=== PATIENT | male | born 1965 | race Caucasian/White ===

== ENCOUNTER 2020-07-19 14:30 | Inpatient (IN) ==
[2020-07-19] MEDS ORDERED: 0.9 % SODIUM CHLORIDE 1,000 ML IV ONE (14:36)
[2020-07-19] MEDS ORDERED: predniSONE 20 MG TABLET PO ONE (14:36)
--- NOTE | 2020-07-19 15:13 | XRay Report ---
CLINICAL INFORMATION: dyspnea COMPARISON: 03/12/2005 FINDINGS: Heart size, mediastinum and pulmonary vessels are normal. Small vague infiltrate has developed in the right base. No effusion. IMPRESSION: Small vague right basilar infiltrate-likely pneumonia. Interpreted and Authenticated by: Charlie Leahy 07/19/20
--- NOTE | 2020-07-19 15:20 | Emergency Department Note ---
SOB HPI General Chief Complaint: Shortness of Breath/Dyspnea Stated Complaint: sob Time Seen by Provider: 07/19/20 14:36 Source: patient, RN notes reviewed, old records reviewed and other (Dr. Brandon called [facility] Mode of arrival: ambulatory Limitations: no limitations and physical limitation History of Present Illness HPI Narrative: Narrative: 54-year-old male with a known of vocal cord polyps and laryngeal mass on CT on 427 evaluated by ENT today. Patient was noted to have stridor and compromised airway that was 4 mm. Sent to the emergency department for evaluation and stabilization. The presumed plan is awake airway. MD Complaint: shortness of breath Onset (ago): day(s) (7) Context: other (Known vocal cord polyps and laryngeal mass) Severity: severe Improves with: oxygen and upright position Worsens with: lying flat, exertion, movement, coughing and inspiration Associated symptoms: Reports pain with inspiration, cough, wheezing, sputum production, palpitations, diaphoresis and other (Stridor); Denies chest pain, fever, orthopnea, lower extremity pain, polyuria, polydipsia, parasthesias, carpopedal spasm, hemoptysis, nausea/vomiting, syncope, abdominal pain and sense of impending doom Treatment prior to arrival: other (Direct [place]) Related Data Home oxygen amount: none Home Medications Medication Instructions Recorded Confirmed No Known Home Meds 07/19/20 07/19/20 Allergies Allergy/AdvReac Type Severity Reaction Status Date / Time NKA Allergy Unknown N/A Uncoded 07/13/20 10:10 Review of Systems ROS ROS Narrative: Narrative: Limitations: ROS unobtainable due to patients medical condition [facility] Narrative Patient History Narrative: Narrative: Medical/Surgical/Family History All Active Problems (Updated 07/19/20 @ 16:16 by Ladarius Mark MD) Laryngeal cancer (Acute) Community acquired pneumonia (Acute) Polyp of vocal cord (Acute) Social History Smoking Status: Smoker, status unknown Exam Narrative Narrative: Narrative: General Limitations: no limitations and physical limitation General appearance: Present alert, anxious, cachectic and in distress Head Head: Present atraumatic and normocephalic Eye Eye: Present normal appearance, PERRL and EOMI ENT ENT: Present mucous membranes dry, hoarse voice and dental caries Expanded ENT Mouth: Present normal external inspection and tongue normal; Absent trismus, lip swelling, tongue elevation and tounge swelling Teeth: Present dental caries Throat: Present normal inspection, muffled voice and other (Stridor); Absent tonsillar erythema, tonsillomegaly, tonsillar exudate, R peritonsillar mass and L peritonsillar mass Neck Neck: Present normal inspection, full ROM, tenderness and lymphadenopathy; Absent meningismus and thyromegaly Chest Chest: Present normal inspection; Absent tenderness Respiratory Respiratory: Present normal lung sounds bilaterally; Absent respiratory distress Cardiovascular Cardiovascular: Present regular rate and normal rhythm; Absent systolic murmur Adbominal Abdominal: Present soft; Absent distention, tenderness, guarding and rebound Extremities Extremities: Present normal inspection and full ROM; Absent tenderness, pedal edema and pretibial edema Back Back: Present normal inspection; Absent CVA tenderness (R) and CVA tenderness (L) Neurological Neurological: Present alert and oriented X3 Psychiatric Psychiatric: Present normal affect and normal mood Skin Skin: Present warm (WNL); Absent rash Course Vital Signs Vital signs: Vital Signs Temperature 97.5 F 07/19/20 14:30 Pulse Rate 97 H 07/19/20 14:30 Respiratory Rate 22 07/19/20 14:30 Blood Pressure 119/86 07/19/20 14:30 Pulse Oximetry (%) 97 07/19/20 14:30 Temperature 97.5 F 07/19/20 14:30 Pulse Rate 82 07/19/20 16:01 Respiratory Rate 14 07/19/20 16:01 Blood Pressure 109/81 07/19/20 16:01 Pulse Oximetry (%) 98 07/19/20 16:01 [facility] Narrative Medical decision making narrative: Narrative: Medical Records Medical records reviewed: Yes I reviewed the patient's medical records. Medical records narrative: 54-year-old male with laryngeal cancer and compromised airway referred from Dr. Brandon's office. Patient has been observed will be taken to the OR for surgical airway. Lab Data Result diagrams: 07/19/20 14:36 07/19/20 14:36 Labs: Lab Results 07/19/20 07/19/20 07/19/20 Range/Units 14:36 14:36 14:36 WBC 12.0 H (4.5-11.0) K/mcL RBC 4.47 L (4.50-5.90) M/mcL Hgb 13.1 L (13.5-16.5) g/dL Hct 40.4 L (41.0-55.0) % MCV 90.4 (80.0-100.0) fL MCH 29.3 (26.0-34.0) pg MCHC 32.4 (31.0-36.0) g/dL RDW 14.3 (11.5-14.5) % Plt Count 272 (140-440) K/mcL MPV 10.2 (7.4-10.4) fL Neut % (Auto) 55.6 (38.0-78.0) % Lymph % (Auto) 32.8 (15.0-49.0) % [place] % (Auto) 10.1 (1.0-12.0) % Eos % (Auto) 1.3 (0.0-7.0) % Baso % (Auto) 0.2 (0.0-2.0) % Lymph # (Auto) 3.92 (1.50-4.80) K/mcL [place] # (Auto) 1.21 H (0.10-0.90) K/mcL Eos # (Auto) 0.16 (0.00-0.70) K/mcL Baso # (Auto) 0.02 (0.00-0.20) K/mcL Absolute Neutrophils 6.64 (1.80-8.00) K/mcL PT 13.5 (11.9-14.5) sec INR 1.0 (0.9-1.1) VBG Lactic Acid (0.5-2.0) mmol/L Sodium 138 (133-145) mmol/L Potassium 3.6 (3.3-5.1) mmol/L Chloride 105 (96-108) mmol/L Carbon Dioxide 28 (22-30) mmol/L Anion Gap 5.0 L (8.0-16.0) BUN 19 (6-20) mg/dL Creatinine 0.7 (0.7-1.2) mg/dL GFR Calculation 108 Glucose 125 H (70-105) mg/dL Calcium 8.7 (8.6-10.4) mg/dL Total Bilirubin 0.3 (0.1-1.0) mg/dL AST 19 (<40) U/L ALT 15 (<40) U/L Alkaline Phosphatase 53 (39-117) U/L Total Protein 6.4 (5.9-8.4) gm/dL Albumin 3.7 (3.2-5.2) gm/dL Globulin 2.7 (2.2-3.7) gm/dL Albumin/Globulin Ratio 1.4 (1.0-2.3) 07/19/20 Range/Units 14:36 WBC (4.5-11.0) K/mcL RBC (4.50-5.90) M/mcL Hgb (13.5-16.5) g/dL Hct (41.0-55.0) % MCV (80.0-100.0) fL MCH (26.0-34.0) pg MCHC (31.0-36.0) g/dL RDW (11.5-14.5) % Plt Count (140-440) K/mcL MPV (7.4-10.4) fL Neut % (Auto) (38.0-78.0) % Lymph % (Auto) (15.0-49.0) % [place] % (Auto) (1.0-12.0) % Eos % (Auto) (0.0-7.0) % Baso % (Auto) (0.0-2.0) % Lymph # (Auto) (1.50-4.80) K/mcL [place] # (Auto) (0.10-0.90) K/mcL Eos # (Auto) (0.00-0.70) K/mcL Baso # (Auto) (0.00-0.20) K/mcL Absolute Neutrophils (1.80-8.00) K/mcL PT (11.9-14.5) sec INR (0.9-1.1) VBG Lactic Acid 1.2 (0.5-2.0) mmol/L Sodium (133-145) mmol/L Potassium (3.3-5.1) mmol/L Chloride (96-108) mmol/L Carbon Dioxide (22-30) mmol/L Anion Gap (8.0-16.0) BUN (6-20) mg/dL Creatinine (0.7-1.2) mg/dL GFR Calculation Glucose (70-105) mg/dL Calcium (8.6-10.4) mg/dL Total Bilirubin (0.1-1.0) mg/dL AST (<40) U/L ALT (<40) U/L Alkaline Phosphatase (39-117) U/L Total Protein (5.9-8.4) gm/dL Albumin (3.2-5.2) gm/dL Globulin (2.2-3.7) gm/dL Albumin/Globulin Ratio (1.0-2.3) ED POC Tests ED POC Tests: MARBELLA - SARS Antigen Negative Radiology Data Radiology results reviewed: Yes I reviewed the patient's radiology results. EKG Data EKG #1: EKG attestation: Yes I reviewed and interpreted this EKG. Rate: tachycardia (101) Rhythm: A.Fib [place]/QRS: RBBB Voltage: decreased voltage throughout Interpretation: nonspecific ST-T wave changes Pulse Oximetry Data Pulse Ox %: 99 Discharge Plan Patient/Caregiver Discharge Instructions Pt seen by MATERIAL PREPARATION WORKER/PA only: No Clinical Impression: Laryngeal cancer, Community acquired pneumonia Patient Disposition: Xfer As Inpt ([facility]) Follow up with: Jim Allison MD [Primary Care Provider] - Prescriptions: No Action No Known Home Meds RF: 0
[2020-07-19 15:26] LABS: Basophils # (Auto) 0.02 K/mcL (0.00-0.20); Basophils % (Auto) 0.2 % (0.0-2.0); Eosinophils # (Auto) 0.16 K/mcL (0.00-0.70); Eosinophils % (Auto) 1.3 % (0.0-7.0); Hematocrit 40.4 % (41.0-55.0); Hemoglobin 13.1 g/dL (13.5-16.5); Lymphocytes # (Auto) 3.92 K/mcL (1.50-4.80); Lymphocytes % (Auto) 32.8 % (15.0-49.0); Mean Cell Volume 90.4 fL (80.0-100.0); Mean Corpuscular HGB Conc 32.4 g/dL (31.0-36.0); Mean Platelet Volume 10.2 fL (7.4-10.4); Monocytes # (Auto) 1.21 K/mcL (0.10-0.90); Monocytes % (Auto) 10.1 % (1.0-12.0); Neutrophils % (Auto) 55.6 % (38.0-78.0); Platelet Count 272 K/mcL (140-440); RBC 4.47 M/mcL (4.50-5.90); Red Cell Distribution Width 14.3 % (11.5-14.5)
[2020-07-19 15:44] LABS: ALT/SGPT 15 U/L (<40); AST/SGOT 19 U/L (<40); Albumin 3.7 gm/dL (3.2-5.2); Albumin/Globulin Ratio 1.4 (1.0-2.3); Alkaline Phosphatase 53 U/L (39-117); Bilirubin,Total 0.3 mg/dL (0.1-1.0); Blood Urea Nitrogen 19 mg/dL (6-20); Calcium 8.7 mg/dL (8.6-10.4); Carbon Dioxide 28 mmol/L (22-30); Chloride 105 mmol/L (96-108); Globulin 2.7 gm/dL (2.2-3.7); Glomerular Filtration Rate 108; Glucose 125 mg/dL (70-105)
[2020-07-19 15:45] LABS: Prothrombin Time 13.5 sec (11.9-14.5)
[2020-07-19] MEDS ORDERED: cefTRIAXone 1 GM VIAL IV ONE (16:13)
[2020-07-19] MEDS ORDERED: AZITHROMYCIN 500 MG in DEXTROSE 5% IN WATER 250 ML IV ONE (16:13)
[2020-07-19] MEDS ORDERED: KETAMINE 50 MG/ML ML ONE (16:55)
[2020-07-19] MEDS ORDERED: PROPOFOL 200 MG/20 ML VIAL IV ONE (16:55)
[2020-07-19] MEDS ORDERED: IPRATROPIUM/ALBUTEROL 3 ML AMPUL.NEB NEB PRN (17:36)
[2020-07-19] MEDS ORDERED: LACTATED RINGERS 250 ML IV PRN (17:36)
[2020-07-19] MEDS ORDERED: diphenhydrAMINE 50 MG/ML VIAL IV PRN (17:36)
[2020-07-19] MEDS ORDERED: MEPERIDINE 25 MG/ML VIAL IV PRN (17:36)
[2020-07-19] MEDS ORDERED: ONDANSETRON 4 MG/2 ML VIAL IV PRN ×2 (17:36→19:03)
[2020-07-19] MEDS ORDERED: PROMETHAZINE 25 MG/ML VIAL IV PRN (17:36)
[2020-07-19] MEDS ORDERED: fentaNYL 100 MCG/2 ML VIAL IV PRN (17:36)
[2020-07-19] MEDS ORDERED: NALOXONE HCL 0.4 MG/ML VIAL IV PRN (17:36)
[2020-07-19] MEDS ORDERED: ACETAMINOPHEN 1,000 MG/100 ML BAG IV ONE (17:36)
[2020-07-19] MEDS ORDERED: LACTATED RINGERS 1,000 ML IV SCH (17:45)
[2020-07-19] MEDS ORDERED: LORazepam 2 MG/ML VIAL ONE (18:01)
[2020-07-19] MEDS ORDERED: LORazepam 2 MG/ML VIAL IV ONE (18:03)
--- NOTE | 2020-07-19 18:18 | XRay Report ---
CLINICAL INFORMATION: Post Surgical ; Trachea placement verification COMPARISON: Preoperative plain film 07/19/2020 FINDINGS: Mild cardiomegaly show slight increase. Mediastinum unremarkable. Tracheostomy tip is 5 cm above the yaneth. Scattered subcutaneous gas in the neck region-as expected. The lungs are clear. No effusions. IMPRESSION: Tracheostomy tip 5 cm above the yaneth. No acute disease Interpreted and Authenticated by: Charlie Leahy 07/19/20
[2020-07-19] MEDS ORDERED: LIDOCAINE W/EPI 1% 20 ML VIAL IJ ONE (18:34)
[2020-07-19] MEDS ORDERED: BISACODYL 10 MG SUPP.RECT PR PRN (19:03)
[2020-07-19] MEDS ORDERED: POTASSIUM CHLORIDE 40 MEQ in DEXTROSE 5% IN WATER 500 ML IV PRN (19:03)
[2020-07-19] MEDS ORDERED: MAGNESIUM SULFATE 2 GM/50 ML BAG IV PRN (19:03)
[2020-07-19] MEDS ORDERED: MELATONIN 3 MG TABLET PO PRN (19:03)
[2020-07-19] MEDS ORDERED: ONDANSETRON 4 MG ODT TABLET SL PRN (19:03)
[2020-07-19] MEDS ORDERED: ACETAMINOPHEN 325 MG TABLET PO PRN (19:03)
[2020-07-19] MEDS ORDERED: POLYETHYLENE GLYCOL 3350 17 GM PACKET PO PRN (19:03)
[2020-07-19] MEDS: 0.9 % SODIUM CHLORIDE 1,000 ML IV SCH (19:19)
[2020-07-19] MEDS: LEVOFLOXACIN 750 MG/150 ML BAG IV SCH (19:28)
[2020-07-19] MEDS: DOCUSATE SODIUM 100 MG CAPSULE PO SCH (19:30)
[2020-07-19] MEDS: SENNOSIDES/DOCUSATE SODIUM 1 TAB TABLET PO SCH (19:30)
[2020-07-19] MEDS: 0.9 % SODIUM CHLORIDE 10 ML SYRINGE IV SCH ×2 (19:30→21:53)
[2020-07-19] MEDS: HYDROmorphone 0.5 MG/0.5 ML SYRINGE IV PRN ×2 (19:40→23:23)
--- NOTE | 2020-07-19 21:42 | Internal Medicine Consult Note ---
HPI Data of Consult Primary Care Provider: Jim Allison Consult Narrative Patient Information: Note initiated : 07/19/20 at 9:39 pm Service Date, if different from initiated Date: [] Patient: Matthias Stoll 54 y/o M admitted on 07/19/20 for SOB . Chief Complaint: Post tracheostomy History of chief complaint- Mr. 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 He was evaluated in the clinic and was referred to the ER for airway management. Patient underwent tracheostomy by ENT and postoperatively hospital service was consulted for continued airway monitoring post tracheostomy. At the time of my evaluation patient is immediately postop. He is under anesthetic sedation but respond to commands and opens eyes. Patient has been incarcerated and being in [facility] but has been released during this hospitalization. Stable hemodynamics in the postoperative phase. Transition to ICU for close airway monitoring. No family members available for prior health history. Review of systems 10 point review system was performed and is negative except for 1 discussed above cc:: CC: Jatinder Brandon [facility] PFSH All Active Problems (Updated 07/19/20 @ 16:16 by Ladarius Mark MD) Laryngeal cancer (Acute) Community acquired pneumonia (Acute) Polyp of vocal cord (Acute) MEDS/ALLERGIES Home Medications and Allergies Home Medications Medication Instructions Recorded Confirmed Type No Known Home Meds 07/19/20 07/20/20 History Allergies Allergy/AdvReac Type Severity Reaction Status Date / Time No Known Drug Allergies Allergy Verified 07/19/20 22:54 EXAM Constitutional Vitals: Temp Pulse Resp BP Pulse Ox 98.2 F 63 12 112/76 100 07/19/20 19:01 07/19/20 21:01 07/19/20 21:01 07/19/20 21:01 07/19/20 21:01 Head normocephalic Oral cavity moist No ear nose discharge Neck tracheostomy collar/dressing noted Eye movement symmetrical Neck supple no lymphadenopathy S1-S2 regular Nonlabored breathing Nondistended nontender abdomen Lower extremity no cyanosis clubbing or joint swelling Skin no suspicious lesion Psych sedated postoperative phase Neuro could not be performed DATA Data Completed and Pending Labs: Labs from last 24 hours 07/19/20 07/19/20 07/19/20 14:36 14:36 14:36 WBC RBC Hgb Hct MCV MCH MCHC RDW Plt Count MPV Neut % (Auto) Lymph % (Auto) [place] % (Auto) Eos % (Auto) Baso % (Auto) Lymph # (Auto) [place] # (Auto) Eos # (Auto) Baso # (Auto) Absolute Neutrophils PT 13.5 INR 1.0 VBG Lactic Acid 1.2 Sodium 138 Potassium 3.6 Chloride 105 Carbon Dioxide 28 Anion Gap 5.0 L BUN 19 Creatinine 0.7 GFR Calculation 108 Glucose 125 H Calcium 8.7 Total Bilirubin 0.3 AST 19 ALT 15 Alkaline Phosphatase 53 Total Protein 6.4 Albumin 3.7 Globulin 2.7 Albumin/Globulin Ratio 1.4 07/19/20 14:36 WBC 12.0 H RBC 4.47 L Hgb 13.1 L Hct 40.4 L MCV 90.4 MCH 29.3 MCHC 32.4 RDW 14.3 Plt Count 272 MPV 10.2 Neut % (Auto) 55.6 Lymph % (Auto) 32.8 [place] % (Auto) 10.1 Eos % (Auto) 1.3 Baso % (Auto) 0.2 Lymph # (Auto) 3.92 [place] # (Auto) 1.21 H Eos # (Auto) 0.16 Baso # (Auto) 0.02 Absolute Neutrophils 6.64 PT INR VBG Lactic Acid Sodium Potassium Chloride Carbon Dioxide Anion Gap BUN Creatinine GFR Calculation Glucose Calcium Total Bilirubin AST ALT Alkaline Phosphatase Total Protein Albumin Globulin Albumin/Globulin Ratio A/P Narrative A/P Narrative: * 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 Postoperative care/suctioning/dressing changes and trach management per ENT * Right basilar pneumonia-initiate antibiotic coverage * Prophylaxis SCDs Plan * Continue postoperative care/tracheostomy care per ENT * Transfer to PCU for extended postop recovery * Antibiotic coverage for pneumonia * Pain management Time Spent With Patient Time: Total time spent is greater than 50% in coordination of care (as documented) at patient's floor/unit and/or counseling patient:
[2020-07-20] MEDS ORDERED: HYDROmorphone 0.5 MG/0.5 ML SYRINGE ONE ×2 (01:24→05:19)
[2020-07-20] MEDS: HYDROmorphone 0.5 MG/0.5 ML SYRINGE IV PRN (05:19)
[2020-07-20] MEDS: 0.9 % SODIUM CHLORIDE 10 ML SYRINGE IV SCH ×3 (05:19→21:01)
[2020-07-20] MEDS: DOCUSATE SODIUM 100 MG CAPSULE PO SCH ×2 (07:01→21:01)
[2020-07-20 07:11] LABS: Basophils # (Auto) 0.01 K/mcL (0.00-0.20); Basophils % (Auto) 0.1 % (0.0-2.0); Eosinophils # (Auto) 0.01 K/mcL (0.00-0.70); Eosinophils % (Auto) 0.1 % (0.0-7.0); Hematocrit 35.4 % (41.0-55.0); Hemoglobin 11.5 g/dL (13.5-16.5); Lymphocytes # (Auto) 1.98 K/mcL (1.50-4.80); Lymphocytes % (Auto) 17.2 % (15.0-49.0); Mean Cell Volume 91.7 fL (80.0-100.0); Mean Corpuscular HGB Conc 32.5 g/dL (31.0-36.0); Monocytes # (Auto) 0.87 K/mcL (0.10-0.90); Monocytes % (Auto) 7.5 % (1.0-12.0); Neutrophils % (Auto) 75.1 % (38.0-78.0); Platelet Count 241 K/mcL (140-440); RBC 3.86 M/mcL (4.50-5.90); Red Cell Distribution Width 14.5 % (11.5-14.5); WBC 11.5 K/mcL (4.5-11.0)
[2020-07-20 07:40] LABS: ALT/SGPT 18 U/L (<40); AST/SGOT 12 U/L (<40); Albumin/Globulin Ratio 1.2 (1.0-2.3); Alkaline Phosphatase 42 U/L (39-117); Bilirubin,Direct < 0.2 mg/dL (0-0.3); Bilirubin,Total 0.4 mg/dL (0.1-1.0); Blood Urea Nitrogen 15 mg/dL (6-20); Calcium 8.2 mg/dL (8.6-10.4); Carbon Dioxide 29 mmol/L (22-30); Chloride 105 mmol/L (96-108); Globulin 2.5 gm/dL (2.2-3.7); Glomerular Filtration Rate 115; Glucose 110 mg/dL (70-105); Lactate Dehydrogenase 182 U/L (135-225); Phosphorous 3.5 mg/dL (2.5-4.5); Triglycerides 53 mg/dL (<150)
--- NOTE | 2020-07-20 12:31 | Internal Med Progress Note ---
SUBJECTIVE Subjective Patient information: Note initiated : 07/20/20 at 12:28 pm Service Date, if different from initiated Date: [] Patient: Matthias Stoll 54 y/o M admitted on 07/19/20 for SOB . Chief Complaint: [] Interval history: Mr. 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 He was evaluated in the clinic and was referred to the ER for airway management. Patient underwent tracheostomy by ENT and postoperatively hospital service was consulted for continued airway monitoring post tracheostomy. At the time of my evaluation patient is immediately postop. He is under anesthetic sedation but respond to commands and opens eyes. Patient has been incarcerated and being in [facility] but has been released during this hospitalization. Stable hemodynamics in the postoperative phase. Transition to ICU for close airway monitoring. No family members available for prior health history. 07/20-patient doing better. Ongoing trach management per ENT. No overnight fevers, respite distress, concerning symptoms. Trach education ongoing. Case discussed with Dr. Seymour ENT. Recommend softer full liquid diet. RT to continue education for trach management/suctioning Constitutional Vitals: Vital Signs Temp Pulse Resp BP Pulse Ox 98.8 F 49 L 13 118/85 100 07/20/20 12:01 07/20/20 12:01 07/20/20 12:01 07/20/20 12:01 07/20/20 12:01 Period Temp Pulse Resp BP Sys/Chavis Pulse Ox Last 24 Hr 97.5 F-98.8 F 49-172 7-28 102-121/67-95 94-100 Intake and Output 07/19/20 07/20/20 07/20/20 21:59 05:59 13:59 Intake Total 3270 0 Output Total 550 450 Balance 3270 -550 -450 Weight 104.978 kg Alert oriented Nonlabored breathing No anxiety Trach in place Intake & Output: Intake & Output 07/19/20 07/20/20 07/20/20 21:59 05:59 13:59 Intake Total 3270 0 Output Total 550 450 Balance 3270 -550 -450 Weight 104.978 kg Intake: IV 2470 Sodium Chloride 0.9% 1,000 ml @ 1000 Wide Open IV .Q0M ONE Rx#: [id number] Zithromax 500 mg In Dextrose 5% 250 in Water 250 ml @ 250 mls/hr IV ONCE ONE Rx#:[id number] Lactated Ringers 1,000 ml @ 20 970 mls/hr IV .Q24H [facility] Rx#: [id number] Oral 0 IV - Manual Only 800 Output: Void Amount 550 450 Other: Urine Appearance Clear Cloudy Urine Color Dark Silvia Dark Yellow Urine Odor Strong OBJ DATA Labs CBC & Chem 7: 07/20/20 05:15 07/20/20 05:15 Labs: Abnormal Lab Results 07/20/20 07/20/20 07/19/20 05:15 05:15 14:36 WBC 11.5 H RBC 3.86 L Hgb 11.5 L Hct 35.4 L [place] # (Auto) Absolute Neutrophils 8.66 H Anion Gap 5.0 L 5.0 L Creatinine 0.6 L Glucose 110 H 125 H Calcium 8.2 L Total Protein 5.5 L Albumin 3.0 L 07/19/20 14:36 WBC 12.0 H RBC 4.47 L Hgb 13.1 L Hct 40.4 L [place] # (Auto) 1.21 H Absolute Neutrophils Anion Gap Creatinine Glucose Calcium Total Protein Albumin Meds: Medications Acetaminophen (Acetaminophen 325 Mg Tablet) 650 mg PO Q4-6HP PRN; Protocol PRN Reason: Per Pain Protocol/Fever > 101 Bisacodyl (Bisacodyl 10 Mg Supp.Rect) 10 mg MI Q2-3DAYS PRN PRN Reason: Constipation Docusate Sodium (Docusate Sodium 100 Mg Capsule) 100 mg PO BID [facility] Last Admin: 07/20/20 07:01 Dose: Not Given Documented by: Hydromorphone HCl (Hydromorphone 0.5 Mg/0.5 Ml Syringe) 0.25 - 0.5 mg IV Q2HP PRN; Protocol PRN Reason: Per Pain Protocol Last Admin: 07/20/20 05:19 Dose: 0.5 mg Documented by: Potassium Chloride 40 meq/ (Dextrose) 520 mls @ 130 mls/hr IV UD PRN PRN Reason: K+ = or < 3.5 Acetaminophen (Ofirmev) 650 mg in 65 mls @ 130 mls/hr IV Q6HP PRN; Protocol PRN Reason: Per Pain Protocol/Fever > 101 Magnesium Sulfate (Magnesium Sulfate) 2 gm in 50 mls @ 50 mls/hr IV UD PRN PRN Reason: MG = or < 1.7 Sodium Chloride (Sodium Chloride 0.9%) 1,000 mls @ 50 mls/hr IV .Q20H [facility] Stop: 07/22/20 07:02 Last Admin: 07/19/20 19:19 Dose: 50 mls/hr Documented by: Levofloxacin (Levaquin) 750 mg in 150 mls @ 100 mls/hr IV Q24H [facility]; Protocol Last Infusion: 07/19/20 20:58 Dose: Infused Documented by: Melatonin (Melatonin 3 Mg Tablet) 3 mg PO HSP PRN PRN Reason: Insomnia Ondansetron HCl (Ondansetron 4 Mg Odt Tablet) 4 mg SL Q4-6HP PRN; Protocol PRN Reason: Nausea And Vomiting Ondansetron HCl (Ondansetron 4 Mg/2 Ml Vial) 4 mg IV Q4-6HP PRN; Protocol PRN Reason: Nausea And Vomiting Polyethylene Glycol (Polyethylene Glycol 3350 17 Gm Packet) 17 gm PO DAILYP PRN PRN Reason: Constipation Senna/Docusate Sodium (Sennosides/Docusate Sodium 1 Tab Tablet) 1 tab PO HS [facility] Last Admin: 07/19/20 19:30 Dose: Not Given Documented by: Sodium Chloride (0.9 % Sodium Chloride 10 Ml Syringe) 10 ml IV Q8 [facility] Last Admin: 07/20/20 05:19 Dose: 10 ml Documented by: A/P Narrative A/P Narrative: * 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 Postoperative care/suctioning/dressing changes and trach management per ENT * Right basilar pneumonia-initiate antibiotic coverage * Tracheostomy care per RT. * Prophylaxis SCDs Plan * Continue postoperative care/tracheostomy care per ENT * Vocal cord mass management per ENT * Transfer to PCU for extended postop recovery * Antibiotic coverage for pneumonia * Pain management * Discharge planning per ENT Time Spent With Patient Time: Total time spent is greater than 50% in coordination of care (as documented) at patient's floor/unit and/or counseling patient: QUALITY VTE Deep Vein Thrombosis/Pulmonary Embolism Present on Admission: No
[2020-07-20] MEDS: ACETAMINOPHEN 650 MG/65 ML BAG IV PRN (13:52)
[2020-07-20] MEDS: LEVOFLOXACIN 750 MG/150 ML BAG IV SCH (14:27)
[2020-07-20] MEDS: 0.9 % SODIUM CHLORIDE 1,000 ML IV SCH (16:29)
[2020-07-20] MEDS: SENNOSIDES/DOCUSATE SODIUM 1 TAB TABLET PO SCH (21:01)
[2020-07-21] MEDS: HYDROmorphone 0.5 MG/0.5 ML SYRINGE IV PRN ×2 (04:52→20:53)
[2020-07-21] MEDS: 0.9 % SODIUM CHLORIDE 10 ML SYRINGE IV SCH ×3 (05:27→20:53)
[2020-07-21 07:46] LABS: Basophils # (Auto) 0.03 K/mcL (0.00-0.20); Basophils % (Auto) 0.3 % (0.0-2.0); Eosinophils # (Auto) 0.18 K/mcL (0.00-0.70); Eosinophils % (Auto) 1.9 % (0.0-7.0); Hematocrit 37.9 % (41.0-55.0); Hemoglobin 12.1 g/dL (13.5-16.5); Lymphocytes # (Auto) 2.19 K/mcL (1.50-4.80); Lymphocytes % (Auto) 23.1 % (15.0-49.0); Mean Cell Volume 91.5 fL (80.0-100.0); Mean Corpuscular HGB Conc 31.9 g/dL (31.0-36.0); Monocytes # (Auto) 0.76 K/mcL (0.10-0.90); Neutrophils % (Auto) 66.7 % (38.0-78.0); Platelet Count 257 K/mcL (140-440); RBC 4.14 M/mcL (4.50-5.90); Red Cell Distribution Width 14.1 % (11.5-14.5); WBC 9.5 K/mcL (4.5-11.0)
[2020-07-21] MEDS: DOCUSATE SODIUM 100 MG CAPSULE PO SCH ×2 (07:55→19:22)
--- NOTE | 2020-07-21 08:43 | Operative Note ---
DATE OF OPERATION: 07/19/2020 PREOPERATIVE DIAGNOSIS: Acute airway obstruction, suspicious for malignancy of the vocal cords and larynx. POSTOPERATIVE DIAGNOSIS: Acute airway obstruction, suspicious for malignancy of the vocal cords and larynx. PROCEDURE: 1. Tracheostomy. 2. Direct suspension laryngoscopy with biopsy of vocal cord lesion. SURGEON: Marcel Brandon DO SPONGE COUNTS: Correct. ESTIMATED BLOOD LOSS: Minimal. ANESTHESIA: None. PROCEDURE IN DETAIL: The patient was administered light sedation, but essentially an awake tracheostomy was performed. While he was spontaneously breathing with ___, his neck was anesthetized with 1% lidocaine with 1:100,000 epinephrine. After that point in time he was given a standard prep and drape. A 15 Bard Koffi blade was used to make an incision in the neck. This was dissected down through the fat and subsequently subcutaneous tissues. Median raphe of the strap muscles were seen. They were reflected laterally. Bipolar cautery was used to remove and divide the isthmus of the thyroid. Upon arrival down onto the second tracheal ring, he was administered more propofol and made unconscious, and at that point in time, a 15 Bard-Koffi blade was used to incise the second tracheal ring. This was harvested without difficulty and removed. The tracheal dilator was then used to further enlarge; a #8 DENTAL ASSISTANT Shiley tracheostomy tube was placed without difficulty under direct visualization. The trach flange was sewn in with four silk sutures. His airway was secured. At that point in time, a Dedo laryngoscope was advanced into the hypopharynx and was advanced down to the base of the tongue and into the larynx. Cup forceps were used to biopsy the left vocal cord. A large tumor was seen appreciably hanging off of this area and obstructing the glottis. Hemostasis was obtained after adequate specimens. The Dedo laryngoscope was removed. The anesthesia was terminated. He was taken back to PACU in satisfactory condition. JDB:kh Job ID: [id number] Doc ID: [id number] Marcel Brandon DO
[2020-07-21 09:00] LABS: ALT/SGPT 15 U/L (<40); AST/SGOT 11 U/L (<40); Albumin/Globulin Ratio 1.3 (1.0-2.3); Alkaline Phosphatase 45 U/L (39-117); Bilirubin,Direct < 0.2 mg/dL (0-0.3); Bilirubin,Total 0.4 mg/dL (0.1-1.0); Blood Urea Nitrogen 10 mg/dL (6-20); Calcium 8.1 mg/dL (8.6-10.4); Carbon Dioxide 26 mmol/L (22-30); Chloride 102 mmol/L (96-108); Globulin 2.4 gm/dL (2.2-3.7); Glomerular Filtration Rate 108; Glucose 74 mg/dL (70-105); Lactate Dehydrogenase 189 U/L (135-225); Phosphorous 2.4 mg/dL (2.5-4.5); Triglycerides 100 mg/dL (<150); Uric Acid 3.6 mg/dL (2.5-8.0)
[2020-07-21] MEDS: LEVOFLOXACIN 750 MG/150 ML BAG IV SCH (09:00)
[2020-07-21] MEDS: ACETAMINOPHEN 650 MG/65 ML BAG IV PRN ×2 (09:00→15:38)
--- NOTE | 2020-07-21 11:47 | Internal Med Progress Note ---
SUBJECTIVE Subjective Patient information: Note initiated : 07/21/20 at 11:42 am Service Date, if different from initiated Date: [] Patient: Matthias Stoll 54 y/o M admitted on 07/19/20 for SOB . Chief Complaint: [] Interval history: Mr. 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 He was evaluated in the clinic and was referred to the ER for airway management. Patient underwent tracheostomy by ENT and postoperatively hospital service was consulted for continued airway monitoring post tracheostomy. At the time of my evaluation patient is immediately postop. He is under anesthetic sedation but respond to commands and opens eyes. Patient has been incarcerated and being in [facility] but has been released during this hospitalization. Stable hemodynamics in the postoperative phase. Transition to ICU for close airway monitoring. No family members available for prior health history. 07/20-patient doing better. Ongoing trach management per ENT. No overnight fevers, respite distress, concerning symptoms. Trach education ongoing. Case discussed with Dr. Seymour ENT. Recommend softer full liquid diet. RT to continue education for trach management/suctioning -07/21 Case discussed with ENT. Recommends deflating cough and trial off liquid diet. As unable to tolerate while cuff inflated. Per ENT patient would need follow-up with radiation oncology due to complete closure of vocal cord from infiltrating mass. Transition to inpatient status. Will possibly need PEG tube placement if unable to tolerate orally. Will consult surgery accordingly. No overnight fever chills. Aggressive suctioning ongoing. No additional concerns per nursing staff. Constitutional Vitals: Vital Signs Temp Pulse Resp BP Pulse Ox 99.9 F H 69 19 134/88 91 07/21/20 08:01 07/21/20 10:04 07/21/20 10:04 07/21/20 10:04 07/21/20 10:04 Period Temp Pulse Resp BP Sys/Chavis Pulse Ox Last 24 Hr 97.2 F-99.9 F 49-73 13-21 118-140/80-97 91-100 Intake and Output 07/20/20 07/21/20 07/21/20 21:59 05:59 13:59 Intake Total 1215 65 Output Total 250 500 Balance 965 -500 65 Weight 104.496 kg Alert and oriented Anxious Trach in place with aggressive suctioning No lymphedema No telemetry events Intake & Output: Intake & Output 07/20/20 07/21/20 07/21/20 21:59 05:59 13:59 Intake Total 1215 65 Output Total 250 500 Balance 965 -500 65 Weight 104.496 kg Intake: IV 1215 65 Sodium Chloride 0.9% 1,000 ml @ 1000 50 mls/hr IV .Q20H [facility] Rx#: [id number] Oral 0 Output: Void Amount 250 500 Other: Urine Appearance Cloudy Clear Urine Color Dark Yellow Bright Yellow OBJ DATA Labs CBC & Chem 7: 07/21/20 05:48 07/21/20 05:48 Labs: Abnormal Lab Results 07/21/20 07/21/20 07/20/20 05:48 05:48 05:15 WBC RBC 4.14 L Hgb 12.1 L Hct 37.9 L [place] # (Auto) Absolute Neutrophils Potassium 3.1 L Anion Gap 5.0 L Creatinine 0.6 L Glucose 110 H Calcium 8.1 L 8.2 L Phosphorus 2.4 L Total Protein 5.4 L 5.5 L Albumin 3.0 L 3.0 L 07/20/20 07/19/20 07/19/20 05:15 14:36 14:36 WBC 11.5 H 12.0 H RBC 3.86 L 4.47 L Hgb 11.5 L 13.1 L Hct 35.4 L 40.4 L [place] # (Auto) 1.21 H Absolute Neutrophils 8.66 H Potassium Anion Gap 5.0 L Creatinine Glucose 125 H Calcium Phosphorus Total Protein Albumin Meds: Medications Acetaminophen (Acetaminophen 325 Mg Tablet) 650 mg PO Q4-6HP PRN; Protocol PRN Reason: Per Pain Protocol/Fever > 101 Bisacodyl (Bisacodyl 10 Mg Supp.Rect) 10 mg ID Q2-3DAYS PRN PRN Reason: Constipation Docusate Sodium (Docusate Sodium 100 Mg Capsule) 100 mg PO BID [facility] Last Admin: 07/21/20 07:55 Dose: Not Given Documented by: Hydromorphone HCl (Hydromorphone 0.5 Mg/0.5 Ml Syringe) 0.25 - 0.5 mg IV Q2HP PRN; Protocol PRN Reason: Per Pain Protocol Last Admin: 07/21/20 04:52 Dose: 0.5 mg Documented by: Potassium Chloride 40 meq/ (Dextrose) 520 mls @ 130 mls/hr IV UD PRN PRN Reason: K+ = or < 3.5 Acetaminophen (Ofirmev) 650 mg in 65 mls @ 130 mls/hr IV Q6HP PRN; Protocol PRN Reason: Per Pain Protocol/Fever > 101 Last Infusion: 07/21/20 09:30 Dose: Infused Documented by: Magnesium Sulfate (Magnesium Sulfate) 2 gm in 50 mls @ 50 mls/hr IV UD PRN PRN Reason: MG = or < 1.7 Sodium Chloride (Sodium Chloride 0.9%) 1,000 mls @ 50 mls/hr IV .Q20H [facility] Stop: 07/22/20 07:02 Last Admin: 07/20/20 16:29 Dose: 50 mls/hr Documented by: Levofloxacin (Levaquin) 750 mg in 150 mls @ 100 mls/hr IV Q24H [facility]; Protocol Last Admin: 07/21/20 09:00 Dose: 100 mls/hr Documented by: Melatonin (Melatonin 3 Mg Tablet) 3 mg PO HSP PRN PRN Reason: Insomnia Ondansetron HCl (Ondansetron 4 Mg Odt Tablet) 4 mg SL Q4-6HP PRN; Protocol PRN Reason: Nausea And Vomiting Ondansetron HCl (Ondansetron 4 Mg/2 Ml Vial) 4 mg IV Q4-6HP PRN; Protocol PRN Reason: Nausea And Vomiting Polyethylene Glycol (Polyethylene Glycol 3350 17 Gm Packet) 17 gm PO DAILYP PRN PRN Reason: Constipation Senna/Docusate Sodium (Sennosides/Docusate Sodium 1 Tab Tablet) 1 tab PO HS [facility] Last Admin: 07/20/20 21:01 Dose: Not Given Documented by: Sodium Chloride (0.9 % Sodium Chloride 10 Ml Syringe) 10 ml IV Q8 [facility] Last Admin: 07/21/20 05:27 Dose: 10 ml Documented by: A/P Narrative A/P Narrative: * 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 Daily suctioning/RT assisted training. ENT recommends outpatient follow-up with radiation oncology for further management of infiltrating vocal cord mass. Biopsies pending. * Dysphagia secondary to vocal cord mass/tracheostomy. ENT recommends deflating cuff and trial of liquid diet. Failing which patient would require PEG tube placement. * Right basilar pneumonia-continuing antibiotic coverage, secondary to poor secretion clearance due to vocal cord infiltrating mass * Tracheostomy care per ENT recommendations ongoing per RT. * Prophylaxis SCDs Plan * Continue postoperative care/tracheostomy care per ENT * Liquid diet * Transition to inpatient status * Continue antibiotic coverage for pneumonia * Pain management * Discharge planning per ENT Time Spent With Patient Time: Total time spent is greater than 50% in coordination of care (as documented) at patient's floor/unit and/or counseling patient: QUALITY VTE Deep Vein Thrombosis/Pulmonary Embolism Present on Admission: No
[2020-07-21] MEDS: 0.9 % SODIUM CHLORIDE 1,000 ML IV SCH (15:37)
--- NOTE | 2020-07-21 17:34 | General Surgery Consult Note ---
HPI Data of Consult Patient: new to practice Consult date: 07/21/20 Requesting physician: Sanya Gunter Primary Care Provider: Jim Allison Consult Narrative Patient Information: Note initiated : 07/21/20 at 5:33 pm Service Date, if different from initiated Date: [] Patient: Matthias Stoll 54 y/o M admitted on 07/19/20 for SOB . 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 He has since failed swallow study and I was asked to place feeding tube secondary to need for nutrition during chemo/radiation for tumor. He denies fevers, chills, no further breathing difficulties. Chief complaint: dificulty swallowing cc:: CC: Jatinder Brandon Review of Systems Review of systems: all systems reviewed, negative other than above PFSH PFSH All Active Problems Laryngeal cancer (Acute) Community acquired pneumonia (Acute) Polyp of vocal cord (Acute) MEDS/ALLERGIES Home Medications and Allergies Home Medications Medication Instructions Recorded Confirmed Type No Known Home Meds 07/19/20 07/20/20 History Allergies Allergy/AdvReac Type Severity Reaction Status Date / Time No Known Drug Allergies Allergy Verified 07/19/20 22:54 Physical Examination Vital Signs Vital signs: Temp Pulse Resp BP Pulse Ox 99.6 F H 77 15 145/92 94 07/21/20 16:01 07/21/20 16:01 07/21/20 16:01 07/21/20 16:01 07/21/20 16:01 General physical appearance General physical exam: well developed, well nourished and no distress Eyes Eye exam: PERRL and normal ocular movement ENT ENT exam: normal pinna, normal nares, normal mucosa, no hearing loss and no congestion Head Head exam IM: Present atraumatic and normocephalic Neck Neck exam: trachea midline, no lymphadenopathy, no venous distension and other (newly placed tracheostomy tube.) Cardiovascular Cardiovascular exam IM: Present normal rate and rhythm Respiratory Respiratory exam: normal expansion, normal respiratory effort, clear to percussion and clear to auscultation Abdomen Abdomen: Present soft, non tender and bowel sounds Hernia: Present none Genitourinary Genitourinary (Male): Present normal penis with no external lesions Rectum Rectum: Present normal sphincter tone, no hemorrhoids, no tenderness, no masses and no bleeding Integumentary Integumentary: Present no rash, no growths and no abnormal pigmentation Neurologic Neurologic: Present normal coordination and normal sensation Musculoskeletal Musculoskeletal: Present normal gait and normal posture Psychiatric Psychiatric: Present oriented to time, oriented to person, oriented to place, speech is normal and memory intact Results Labs Result diagrams: 07/21/20 05:48 07/21/20 05:48 Labs: Abnormal lab results 07/21/20 07/21/20 Range/Units 05:48 05:48 RBC 4.14 L (4.50-5.90) M/mcL Hgb 12.1 L (13.5-16.5) g/dL Hct 37.9 L (41.0-55.0) % Potassium 3.1 L (3.3-5.1) mmol/L Calcium 8.1 L (8.6-10.4) mg/dL Phosphorus 2.4 L (2.5-4.5) mg/dL Total Protein 5.4 L (5.9-8.4) gm/dL Albumin 3.0 L (3.2-5.2) gm/dL Diabetes panel 07/21/20 Range/Units 05:48 Sodium 137 (133-145) mmol/L Potassium 3.1 L (3.3-5.1) mmol/L Chloride 102 (96-108) mmol/L Carbon Dioxide 26 (22-30) mmol/L BUN 10 (6-20) mg/dL Creatinine 0.7 (0.7-1.2) mg/dL Glucose 74 (70-105) mg/dL Calcium 8.1 L (8.6-10.4) mg/dL AST 11 (<40) U/L ALT 15 (<40) U/L Alkaline Phosphatase 45 (39-117) U/L Total Protein 5.4 L (5.9-8.4) gm/dL Albumin 3.0 L (3.2-5.2) gm/dL Triglycerides 100 (<150) mg/dL Calcium panel 07/21/20 Range/Units 05:48 Calcium 8.1 L (8.6-10.4) mg/dL Phosphorus 2.4 L (2.5-4.5) mg/dL Albumin 3.0 L (3.2-5.2) gm/dL Pituitary panel 07/21/20 Range/Units 05:48 Sodium 137 (133-145) mmol/L Potassium 3.1 L (3.3-5.1) mmol/L Chloride 102 (96-108) mmol/L Carbon Dioxide 26 (22-30) mmol/L BUN 10 (6-20) mg/dL Creatinine 0.7 (0.7-1.2) mg/dL Glucose 74 (70-105) mg/dL Calcium 8.1 L (8.6-10.4) mg/dL Adrenal panel 07/21/20 Range/Units 05:48 Sodium 137 (133-145) mmol/L Potassium 3.1 L (3.3-5.1) mmol/L Chloride 102 (96-108) mmol/L Carbon Dioxide 26 (22-30) mmol/L BUN 10 (6-20) mg/dL Creatinine 0.7 (0.7-1.2) mg/dL Glucose 74 (70-105) mg/dL Calcium 8.1 L (8.6-10.4) mg/dL Total Bilirubin 0.4 (0.1-1.0) mg/dL AST 11 (<40) U/L ALT 15 (<40) U/L Alkaline Phosphatase 45 (39-117) U/L Total Protein 5.4 L (5.9-8.4) gm/dL Albumin 3.0 L (3.2-5.2) gm/dL All other labs normal. A/P Narrative A/P Narrative: vocal cord tumor, need for tracheostomy and swallowing difficulty. Plan: PEG details of procedure discussed with patient at length, he confirms understanding and desires to continue. Time Spent With Patient Time: Total time spent is greater than 50% in coordination of care (as documented) at patient's floor/unit and/or counseling patient:
[2020-07-21] MEDS: SENNOSIDES/DOCUSATE SODIUM 1 TAB TABLET PO SCH (19:22)
[2020-07-22] MEDS: ACETAMINOPHEN 650 MG/65 ML BAG IV PRN ×3 (02:16→21:50)
[2020-07-22] MEDS: 0.9 % SODIUM CHLORIDE 10 ML SYRINGE IV SCH ×3 (05:31→22:04)
[2020-07-22 07:58] LABS: Basophils # (Auto) 0.02 K/mcL (0.00-0.20); Basophils % (Auto) 0.2 % (0.0-2.0); Eosinophils # (Auto) 0.51 K/mcL (0.00-0.70); Eosinophils % (Auto) 4.9 % (0.0-7.0); Hematocrit 39.7 % (41.0-55.0); Hemoglobin 13.1 g/dL (13.5-16.5); Lymphocytes % (Auto) 18.1 % (15.0-49.0); Mean Cell Volume 89.6 fL (80.0-100.0); Mean Platelet Volume 9.5 fL (7.4-10.4); Monocytes % (Auto) 6.7 % (1.0-12.0); Neutrophils % (Auto) 70.1 % (38.0-78.0); Platelet Count 277 K/mcL (140-440); RBC 4.43 M/mcL (4.50-5.90); Red Cell Distribution Width 13.6 % (11.5-14.5); WBC 10.5 K/mcL (4.5-11.0)
[2020-07-22] MEDS: DOCUSATE SODIUM 100 MG CAPSULE PO SCH ×2 (09:45→21:50)
[2020-07-22 09:54] LABS: ALT/SGPT 13 U/L (<40); AST/SGOT 12 U/L (<40); Albumin 3.1 gm/dL (3.2-5.2); Albumin/Globulin Ratio 1.1 (1.0-2.3); Alkaline Phosphatase 46 U/L (39-117); Bilirubin,Direct < 0.2 mg/dL (0-0.3); Bilirubin,Total 0.5 mg/dL (0.1-1.0); Blood Urea Nitrogen 10 mg/dL (6-20); Calcium 8.2 mg/dL (8.6-10.4); Carbon Dioxide 26 mmol/L (22-30); Chloride 101 mmol/L (96-108); Globulin 2.7 gm/dL (2.2-3.7); Glomerular Filtration Rate 115; Glucose 71 mg/dL (70-105); Lactate Dehydrogenase 196 U/L (135-225); Phosphorous 3.1 mg/dL (2.5-4.5); Triglycerides 93 mg/dL (<150); Uric Acid 3.5 mg/dL (2.5-8.0)
[2020-07-22] MEDS ORDERED: GLYCOPYRROLATE 0.2 MG/ML VIAL IV ONE (10:15)
[2020-07-22] MEDS ORDERED: PROPOFOL 200 MG/20 ML VIAL IV ONE ×2 (10:15→11:41)
[2020-07-22] MEDS ORDERED: KETAMINE 50 MG/ML ML ONE ×2 (10:15→11:41)
[2020-07-22] MEDS ORDERED: MIDAZOLAM 2 MG/2 ML VIAL ONE (10:15)
[2020-07-22] MEDS ORDERED: fentaNYL 100 MCG/2 ML VIAL IV ONE (10:15)
[2020-07-22] MEDS ORDERED: ONDANSETRON 4 MG/2 ML VIAL ONE (10:15)
[2020-07-22] MEDS ORDERED: fentaNYL 100 MCG/2 ML VIAL IV PRN (10:30)
[2020-07-22] MEDS ORDERED: LACTATED RINGERS 1,000 ML IV SCH (10:30)
[2020-07-22] MEDS ORDERED: NALOXONE HCL 0.4 MG/ML VIAL IV PRN (10:30)
[2020-07-22] MEDS ORDERED: IPRATROPIUM/ALBUTEROL 3 ML AMPUL.NEB NEB PRN (10:30)
[2020-07-22] MEDS ORDERED: FLUMAZENIL 0.1 MG/ML ML IV PRN (10:30)
[2020-07-22] MEDS ORDERED: LACTATED RINGERS 250 ML IV PRN (10:30)
--- NOTE | 2020-07-22 10:37 | Operative Note ---
Brief Operative Note Date of procedure: 07/22/20 Pre-op diagnosis: Vocal cord mass, dysphagia Post-op diagnosis: same Procedure: Percutaneous gastrotomy tube placement Grafts/Implants: Yes Anesthesia: GETA Findings: Normal anatomy Complications: none Surgeon: Cullen Alvarado Estimated blood loss (cc): 5 Specimens Removed/Pathology: none sent Condition: stable Disposition: PACU Operative Note Operative Note: After all risk benefits and alternatives to the procedure were discussed with the patient at length he verbalized understanding and desire to continue with the procedure. Patient was taken main operating room placed upon the operative table. General anesthesia was induced through his previously placed tracheostomy tube. Surgical timeout was taken to verify patient and procedure being performed. Adult gastroscope scope was entered under direct vision and advanced into the stomach which was insufflated, a good light reflex was able to be seen on the anterior abdominal wall. The anterior abdominal wall was then prepped and draped in the standard surgical fashion. 1% lidocaine was used for local anesthesia. A small incision was made over the area of the light reflex and introducer needle was passed through the abdominal wall into the stomach was visualized to be in the stomach with the gastroscope. A guidewire was placed through the introducer needle into the stomach it was grasped with the gastroscope and brought out through the mouth. A gastrotomy tube was then attached to the guidewire and placed in a standard pull technique through the abdominal wall into the stomach. The adult gastroscope was passed back down into the stomach under direct vision and the bumper was verified to be in good position after the external bumper was placed. The gastroscope was placed in the standard fashion and the bumper was at 3 cm. The air was removed from the stomach as well as the gastroscope. Patient was awakened from anesthesia and transferred postanesthesia care unit awake alert in good condition.
[2020-07-22] MEDS: LEVOFLOXACIN 750 MG/150 ML BAG IV SCH (11:39)
[2020-07-22] MEDS ORDERED: MELATONIN 3 MG TABLET PO PRN (11:41)
[2020-07-22] MEDS ORDERED: ONDANSETRON 4 MG ODT TABLET SL PRN (11:41)
[2020-07-22] MEDS ORDERED: ACETAMINOPHEN 325 MG TABLET PO PRN (11:41)
[2020-07-22] MEDS ORDERED: BISACODYL 10 MG SUPP.RECT PR PRN (11:41)
[2020-07-22] MEDS ORDERED: POTASSIUM CHLORIDE 40 MEQ in DEXTROSE 5% IN WATER 500 ML IV PRN (11:41)
[2020-07-22] MEDS ORDERED: POLYETHYLENE GLYCOL 3350 17 GM PACKET PO PRN (11:41)
[2020-07-22] MEDS ORDERED: ONDANSETRON 4 MG/2 ML VIAL IV PRN (11:41)
[2020-07-22] MEDS ORDERED: MAGNESIUM SULFATE 2 GM/50 ML BAG IV PRN (11:41)
--- NOTE | 2020-07-22 12:12 | Internal Med Progress Note ---
SUBJECTIVE Subjective Patient information: Note initiated : 07/22/20 at 12:10 pm Service Date, if different from initiated Date: [] Patient: Matthias Stoll 54 y/o M admitted on 07/19/20 for SOB . Chief Complaint: [] Interval history: Mr. 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 He was evaluated in the clinic and was referred to the ER for airway management. Patient underwent tracheostomy by ENT and postoperatively hospital service was consulted for continued airway monitoring post tracheostomy. At the time of my evaluation patient is immediately postop. He is under anesthetic sedation but respond to commands and opens eyes. Patient has been incarcerated and being in long-term but has been released during this hospitalization. Stable hemodynamics in the postoperative phase. Transition to ICU for close airway monitoring. No family members available for prior health history. 07/20-patient doing better. Ongoing trach management per ENT. No overnight fevers, respite distress, concerning symptoms. Trach education ongoing. Case discussed with Dr. Seymour ENT. Recommend softer full liquid diet. RT to continue education for trach management/suctioning -07/21 Case discussed with ENT. Recommends deflating cough and trial off liquid diet. As unable to tolerate while cuff inflated. Per ENT patient would need follow-up with radiation oncology due to complete closure of vocal cord from infiltrating mass. Transition to inpatient status. Will possibly need PEG tube placement if unable to tolerate orally. Will consult surgery accordingly. No overnight fever chills. Aggressive suctioning ongoing. No additional concerns per nursing staff. 07/22-patient status post PEG tube placement this morning. Trach care ongoing. Barium swallow today. Case discussed with radiation oncology and recommends follow-up as outpatient for evaluation of vocal cord mass. Biopsy results pending. Anticipate discharge in the next 24-48 once able to self manage tracheostomy care/PEG tube feeding Constitutional Vitals: Vital Signs Temp Pulse Resp BP Pulse Ox 98.7 F 67 13 110/73 94 07/22/20 12:00 07/22/20 12:00 07/22/20 12:00 07/22/20 12:00 07/22/20 12:00 Period Temp Pulse Resp BP Sys/Chavis Pulse Ox Last 24 Hr 98.7 F-99.9 F 61-83 03-11 110-153/71-98 85-98 Intake and Output 07/21/20 07/22/20 07/22/20 21:59 05:59 13:59 Intake Total 1065 65 550 Output Total 500 1625 5 Balance 565 -1560 545 Weight 103.918 kg Alert oriented Nonlabored breathing, tracheostomy in place PEG tube in place No anxiety Intake & Output: Intake & Output 07/21/20 07/22/20 07/22/20 21:59 05:59 13:59 Intake Total 1065 65 550 Output Total 500 1625 5 Balance 565 -1560 545 Weight 103.918 kg Intake: IV 1065 65 Sodium Chloride 0.9% 1,000 ml @ 1000 50 mls/hr IV .Q20H [facility] Rx#: [id number] IV - Manual Only 550 Output: Void Amount 500 1625 Estimated Blood Loss 5 Other: Urine Appearance Clear Urine Color Pale OBJ DATA Labs CBC & Chem 7: 07/22/20 06:10 07/22/20 06:10 Labs: Abnormal Lab Results 07/22/20 07/22/20 07/21/20 06:10 06:10 05:48 WBC RBC 4.43 L Hgb 13.1 L Hct 39.7 L [place] # (Auto) Absolute Neutrophils Potassium 3.2 L 3.1 L Anion Gap Creatinine 0.6 L Glucose Calcium 8.2 L 8.1 L Phosphorus 2.4 L Total Protein 5.8 L 5.4 L Albumin 3.1 L 3.0 L 07/21/20 07/20/20 07/20/20 05:48 05:15 05:15 WBC 11.5 H RBC 4.14 L 3.86 L Hgb 12.1 L 11.5 L Hct 37.9 L 35.4 L [place] # (Auto) Absolute Neutrophils 8.66 H Potassium Anion Gap 5.0 L Creatinine 0.6 L Glucose 110 H Calcium 8.2 L Phosphorus Total Protein 5.5 L Albumin 3.0 L 07/19/20 07/19/20 14:36 14:36 WBC 12.0 H RBC 4.47 L Hgb 13.1 L Hct 40.4 L [place] # (Auto) 1.21 H Absolute Neutrophils Potassium Anion Gap 5.0 L Creatinine Glucose 125 H Calcium Phosphorus Total Protein Albumin Meds: Medications Acetaminophen (Acetaminophen 325 Mg Tablet) 650 mg PO Q4-6HP PRN; Protocol PRN Reason: Per Pain Protocol/Fever > 101 Bisacodyl (Bisacodyl 10 Mg Supp.Rect) 10 mg [place] Q2-3DAYS PRN PRN Reason: Constipation Docusate Sodium (Docusate Sodium 100 Mg Capsule) 100 mg PO BID [facility] Hydromorphone HCl (Hydromorphone 0.5 Mg/0.5 Ml Syringe) 0.25 - 0.5 mg IV Q2HP PRN; Protocol PRN Reason: Per Pain Protocol Acetaminophen (Ofirmev) 650 mg in 65 mls @ 130 mls/hr IV Q6HP PRN; Protocol PRN Reason: Per Pain Protocol/Fever > 101 Levofloxacin (Levaquin) 750 mg in 150 mls @ 100 mls/hr IV DAILY [facility]; Protocol Magnesium Sulfate (Magnesium Sulfate) 2 gm in 50 mls @ 50 mls/hr IV UD PRN PRN Reason: MG = or < 1.7 Potassium Chloride 40 meq/ (Dextrose) 520 mls @ 130 mls/hr IV UD PRN PRN Reason: K+ = or < 3.5 Melatonin (Melatonin 3 Mg Tablet) 3 mg PO HSP PRN PRN Reason: Insomnia Ondansetron HCl (Ondansetron 4 Mg Odt Tablet) 4 mg SL Q4-6HP PRN; Protocol PRN Reason: Nausea And Vomiting Ondansetron HCl (Ondansetron 4 Mg/2 Ml Vial) 4 mg IV Q4-6HP PRN; Protocol PRN Reason: Nausea And Vomiting Polyethylene Glycol (Polyethylene Glycol 3350 17 Gm Packet) 17 gm PO DAILYP PRN PRN Reason: Constipation Senna/Docusate Sodium (Sennosides/Docusate Sodium 1 Tab Tablet) 1 tab PO HS [facility] Sodium Chloride (0.9 % Sodium Chloride 10 Ml Syringe) 10 ml IV Q8 [facility] A/P Narrative A/P Narrative: * 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 Ongoing daily suctioning/RT assisted training per ENT recommendations. ENT recommends outpatient follow-up with radiation oncology for further management of infiltrating vocal cord mass. Biopsies pending. Case discussed with radiation oncology and recommends outpatient follow-up for evaluation * Dysphagia secondary to vocal cord mass/tracheostomy. Status post PEG tube placement. PEG tube can be once approved by surgery. Undergoing barium swallow today * Right basilar pneumonia-clinically improving with continued antibiotic, secondary to poor secretion clearance due to vocal cord infiltrating mass * Prophylaxis SCDs Plan * Continue postoperative care/tracheostomy care per ENT * PEG tube nutrition once approved by surgery * Continue antibiotic coverage for pneumonia * Pain management * Discharge once able to self manage tracheostomy and PEG tube Time Spent With Patient Time: Total time spent is greater than 50% in coordination of care (as documented) at patient's floor/unit and/or counseling patient: QUALITY VTE Deep Vein Thrombosis/Pulmonary Embolism Present on Admission: No
[2020-07-22] MEDS: HYDROmorphone 0.5 MG/0.5 ML SYRINGE IV PRN (19:18)
[2020-07-22] MEDS: SENNOSIDES/DOCUSATE SODIUM 1 TAB TABLET PO SCH (21:50)
[2020-07-23] MEDS: HYDROmorphone 0.5 MG/0.5 ML SYRINGE IV PRN ×2 (04:05→21:30)
[2020-07-23] MEDS: 0.9 % SODIUM CHLORIDE 10 ML SYRINGE IV SCH ×3 (04:07→21:35)
--- NOTE | 2020-07-23 05:11 | XRay Report ---
CLINICAL INFORMATION: New Trach/Per speech therapy COMPARISON: None. TECHNIQUE: Exam was conducted in conjunction with speech pathology. With the patient in upright position, fluoroscopic observation and recording was obtained of the upper esophagus. Deglutition of multiple consistencies of barium and solids. FINDINGS: Tongue elevation and palate depression are normal resulting in propulsion of the barium into the oropharynx. Nasopharyngeus closes normally. Pharyngeal stripping is unremarkable. The epiglottis and vocal cord closure close normally-no evidence of aspiration on any of the substances administered. Cricopharyngeus opens normally with normal initiation of primary peristaltic wave. No focal pathology IMPRESSION: No evidence of aspiration-please see speech pathology report Interpreted and Authenticated by: Charlie Leahy 07/23/20
[2020-07-23 07:12] LABS: Basophils # (Auto) 0.03 K/mcL (0.00-0.20); Basophils % (Auto) 0.3 % (0.0-2.0); Eosinophils # (Auto) 0.63 K/mcL (0.00-0.70); Eosinophils % (Auto) 6.7 % (0.0-7.0); Hematocrit 39.7 % (41.0-55.0); Hemoglobin 13.2 g/dL (13.5-16.5); Lymphocytes # (Auto) 1.85 K/mcL (1.50-4.80); Lymphocytes % (Auto) 19.7 % (15.0-49.0); Mean Cell Volume 89.8 fL (80.0-100.0); Mean Corpuscular HGB Conc 33.2 g/dL (31.0-36.0); Mean Platelet Volume 9.3 fL (7.4-10.4); Monocytes # (Auto) 0.58 K/mcL (0.10-0.90); Monocytes % (Auto) 6.2 % (1.0-12.0); Neutrophils % (Auto) 67.1 % (38.0-78.0); Platelet Count 282 K/mcL (140-440); RBC 4.42 M/mcL (4.50-5.90); Red Cell Distribution Width 13.8 % (11.5-14.5); WBC 9.4 K/mcL (4.5-11.0)
[2020-07-23 07:35] LABS: ALT/SGPT 11 U/L (<40); AST/SGOT 10 U/L (<40); Albumin 2.9 gm/dL (3.2-5.2); Alkaline Phosphatase 48 U/L (39-117); Bilirubin,Direct < 0.2 mg/dL (0-0.3); Bilirubin,Total 0.3 mg/dL (0.1-1.0); Blood Urea Nitrogen 12 mg/dL (6-20); Calcium 8.5 mg/dL (8.6-10.4); Carbon Dioxide 28 mmol/L (22-30); Chloride 102 mmol/L (96-108); Globulin 2.9 gm/dL (2.2-3.7); Glomerular Filtration Rate 108; Glucose 93 mg/dL (70-105); Lactate Dehydrogenase 202 U/L (135-225); Phosphorous 4.1 mg/dL (2.5-4.5); Triglycerides 68 mg/dL (<150); Uric Acid 3.4 mg/dL (2.5-8.0)
[2020-07-23] MEDS: LEVOFLOXACIN 750 MG/150 ML BAG IV SCH (09:32)
[2020-07-23] MEDS: DOCUSATE SODIUM 100 MG CAPSULE PO SCH ×2 (09:33→20:38)
[2020-07-23] MEDS: IBUPROFEN 100 MG/5 ML ORAL SUSP PO PRN ×2 (09:46→19:20)
--- NOTE | 2020-07-23 11:37 | Internal Med Progress Note ---
SUBJECTIVE Subjective Patient information: Note initiated : 07/23/20 at 11:34 am Service Date, if different from initiated Date: [] Patient: Matthias Stoll 54 y/o M admitted on 07/19/20 for SOB . Chief Complaint: [] Interval history: Mr. 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 He was evaluated in the clinic and was referred to the ER for airway management. Patient underwent tracheostomy by ENT and postoperatively hospital service was consulted for continued airway monitoring post tracheostomy. At the time of my evaluation patient is immediately postop. He is under anesthetic sedation but respond to commands and opens eyes. Patient has been incarcerated and being in retirement but has been released during this hospitalization. Stable hemodynamics in the postoperative phase. Transition to ICU for close airway monitoring. No family members available for prior health history. 07/20-patient doing better. Ongoing trach management per ENT. No overnight fevers, respite distress, concerning symptoms. Trach education ongoing. Case discussed with Dr. Seymour ENT. Recommend softer full liquid diet. RT to continue education for trach management/suctioning -07/21 Case discussed with ENT. Recommends deflating cough and trial off liquid diet. As unable to tolerate while cuff inflated. Per ENT patient would need follow-up with radiation oncology due to complete closure of vocal cord from infiltrating mass. Transition to inpatient status. Will possibly need PEG tube placement if unable to tolerate orally. Will consult surgery accordingly. No overnight fever chills. Aggressive suctioning ongoing. No additional concerns per nursing staff. 07/22-patient status post PEG tube placement this morning. Trach care ongoing. Barium swallow today. Case discussed with radiation oncology and recommends follow-up as outpatient for evaluation of vocal cord mass. Biopsy results pending. Anticipate discharge in the next 24-48 once able to self manage tracheostomy care/PEG tube feeding 07/23-patient complains of pain at the PEG tube site. Was able to pass swallow eval and now on level 5 minced food and able to swallow without difficulty. PEG tube currently clamped. No overnight fever chills. Able to clear secretions via tracheostomy tube. White count 9.4. No additional concerns per nursing staff. Continue trach care. Case management to coordinate discharge planning possibly Saturday or Saturday Constitutional Vitals: Vital Signs Temp Pulse Resp BP Pulse Ox 99.3 F H 72 19 110/77 95 07/23/20 08:00 07/23/20 10:00 07/23/20 09:00 07/23/20 10:00 07/23/20 10:00 Period Temp Pulse Resp BP Sys/Chavis Pulse Ox Last 24 Hr 98.2 F-99.3 F 57-88 12-25 102-123/64-89 85-99 Intake and Output 07/22/20 07/23/20 07/23/20 21:59 05:59 13:59 Intake Total 585 65 150 Output Total 425 1325 250 Balance 160 -1260 -100 Weight 104.689 kg alert oriented Nonlabored breathing Tracheostomy suctioning ongoing. PEG tube in place without surrounding erythema but minimal tenderness on palpation superior to the insertion site Intake & Output: Intake & Output 07/22/20 07/23/20 07/23/20 21:59 05:59 13:59 Intake Total 585 65 150 Output Total 425 1325 250 Balance 160 -1260 -100 Weight 104.689 kg Intake: IV 585 65 150 Potassium Chloride 40 Meq In 520 Dextrose 5% in Water 500 ml @ 130 mls/hr IV UD PRN Rx#: [id number] Output: Void Amount 425 1325 250 Other: Urine Appearance Clear Clear Clear Urine Color Bright Yellow Bright Yellow Bright Yellow Urine Odor Normal Normal OBJ DATA Labs CBC & Chem 7: 07/23/20 05:07 07/23/20 05:07 Labs: Abnormal Lab Results 07/23/20 07/23/20 07/22/20 05:07 05:07 06:10 RBC 4.42 L Hgb 13.2 L Hct 39.7 L Potassium 3.2 L Creatinine 0.6 L Calcium 8.5 L 8.2 L Phosphorus Total Protein 5.8 L 5.8 L Albumin 2.9 L 3.1 L 07/22/20 07/21/20 07/21/20 06:10 05:48 05:48 RBC 4.43 L 4.14 L Hgb 13.1 L 12.1 L Hct 39.7 L 37.9 L Potassium 3.1 L Creatinine Calcium 8.1 L Phosphorus 2.4 L Total Protein 5.4 L Albumin 3.0 L Meds: Medications Acetaminophen (Acetaminophen 325 Mg Tablet) 650 mg PO Q4-6HP PRN; Protocol PRN Reason: Per Pain Protocol/Fever > 101 Bisacodyl (Bisacodyl 10 Mg Supp.Rect) 10 mg [place] Q2-3DAYS PRN PRN Reason: Constipation Docusate Sodium (Docusate Sodium 100 Mg Capsule) 100 mg PO BID [facility] Last Admin: 07/23/20 09:33 Dose: 100 mg Documented by: Hydromorphone HCl (Hydromorphone 0.5 Mg/0.5 Ml Syringe) 0.25 - 0.5 mg IV Q2HP PRN; Protocol PRN Reason: Per Pain Protocol Last Admin: 07/23/20 04:05 Dose: 0.5 mg Documented by: Acetaminophen (Ofirmev) 650 mg in 65 mls @ 130 mls/hr IV Q6HP PRN; Protocol PRN Reason: Per Pain Protocol/Fever > 101 Last Infusion: 07/22/20 22:20 Dose: Infused Documented by: Levofloxacin (Levaquin) 750 mg in 150 mls @ 100 mls/hr IV DAILY [facility]; Protocol Last Infusion: 07/23/20 11:02 Dose: Infused Documented by: Magnesium Sulfate (Magnesium Sulfate) 2 gm in 50 mls @ 50 mls/hr IV UD PRN PRN Reason: MG = or < 1.7 Potassium Chloride 40 meq/ (Dextrose) 520 mls @ 130 mls/hr IV UD PRN PRN Reason: K+ = or < 3.5 Last Infusion: 07/22/20 16:13 Dose: Infused Documented by: Ibuprofen (Ibuprofen 100 Mg/5 Ml Oral Susp) 200 mg PO TIDP PRN; Protocol PRN Reason: Pain Last Admin: 07/23/20 09:46 Dose: 200 mg Documented by: Melatonin (Melatonin 3 Mg Tablet) 3 mg PO HSP PRN PRN Reason: Insomnia Ondansetron HCl (Ondansetron 4 Mg Odt Tablet) 4 mg SL Q4-6HP PRN; Protocol PRN Reason: Nausea And Vomiting Ondansetron HCl (Ondansetron 4 Mg/2 Ml Vial) 4 mg IV Q4-6HP PRN; Protocol PRN Reason: Nausea And Vomiting Polyethylene Glycol (Polyethylene Glycol 3350 17 Gm Packet) 17 gm PO DAILYP PRN PRN Reason: Constipation Senna/Docusate Sodium (Sennosides/Docusate Sodium 1 Tab Tablet) 1 tab PO HS [facility] Last Admin: 07/22/20 21:50 Dose: 1 tab Documented by: Sodium Chloride (0.9 % Sodium Chloride 10 Ml Syringe) 10 ml IV Q8 [facility] Last Admin: 07/23/20 04:07 Dose: 10 ml Documented by: A/P Narrative A/P Narrative: * 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 Ongoing daily suctioning/RT assisted training per ENT recommendations. ENT recommends outpatient follow-up with radiation oncology for further management of infiltrating vocal cord mass. Biopsies pending. Case discussed with radiation oncology and recommends outpatient follow-up for evaluation.Preliminary vocal cord biopsy pathology results reveals complex histology suspicious for squamous papilloma versus squamous cell carcinoma. Final results awaited * dysphagia secondary to vocal cord mass/tracheostomy. Status post PEG tube placement. Clear speech eval/barium and now on level 5 diet. PEG tube currently clamped * Right basilar pneumonia-clinically improving with continued antibiotic, secon gregorio to poor secretion clearance due to vocal cord infiltrating mass * Prophylaxis SCDs Plan * Continue postoperative care/tracheostomy care per ENT * Diet per ST recommendations * PEG tube can be used if necessary * Continue antibiotic for additional 3 days * Continue pain management * Discharge likely in 48 hours, case management to coordinate outpatient follow- up with rad [place]/PCP Time Spent With Patient Time: Total time spent is greater than 50% in coordination of care (as documented) at patient's floor/unit and/or counseling patient: QUALITY VTE Deep Vein Thrombosis/Pulmonary Embolism Present on Admission: No
[2020-07-23] MEDS: ACETAMINOPHEN 650 MG/65 ML BAG IV PRN (14:34)
[2020-07-23] MEDS: SENNOSIDES/DOCUSATE SODIUM 1 TAB TABLET PO SCH (20:38)
[2020-07-24] MEDS: ACETAMINOPHEN 650 MG/65 ML BAG IV PRN ×2 (04:51→14:57)
[2020-07-24] MEDS: 0.9 % SODIUM CHLORIDE 10 ML SYRINGE IV SCH ×3 (04:52→20:58)
[2020-07-24 06:10] LABS: Basophils # (Auto) 0.03 K/mcL (0.00-0.20); Basophils % (Auto) 0.3 % (0.0-2.0); Eosinophils # (Auto) 0.61 K/mcL (0.00-0.70); Eosinophils % (Auto) 6.6 % (0.0-7.0); Hematocrit 41.3 % (41.0-55.0); Hemoglobin 13.6 g/dL (13.5-16.5); Lymphocytes # (Auto) 2.22 K/mcL (1.50-4.80); Lymphocytes % (Auto) 24.2 % (15.0-49.0); Mean Cell Volume 89.8 fL (80.0-100.0); Mean Corpuscular HGB Conc 32.9 g/dL (31.0-36.0); Mean Platelet Volume 9.4 fL (7.4-10.4); Monocytes # (Auto) 0.67 K/mcL (0.10-0.90); Monocytes % (Auto) 7.3 % (1.0-12.0); Neutrophils % (Auto) 61.6 % (38.0-78.0); Platelet Count 329 K/mcL (140-440); WBC 9.2 K/mcL (4.5-11.0)
[2020-07-24 06:31] LABS: ALT/SGPT 10 U/L (<40); AST/SGOT 10 U/L (<40); Albumin 3.3 gm/dL (3.2-5.2); Albumin/Globulin Ratio 1.1 (1.0-2.3); Alkaline Phosphatase 46 U/L (39-117); Bilirubin,Direct < 0.2 mg/dL (0-0.3); Bilirubin,Total 0.3 mg/dL (0.1-1.0); Blood Urea Nitrogen 11 mg/dL (6-20); Calcium 8.8 mg/dL (8.6-10.4); Carbon Dioxide 29 mmol/L (22-30); Chloride 101 mmol/L (96-108); Globulin 3.1 gm/dL (2.2-3.7); Glomerular Filtration Rate 108; Glucose 92 mg/dL (70-105); Lactate Dehydrogenase 160 U/L (135-225); Phosphorous 3.3 mg/dL (2.5-4.5); Triglycerides 94 mg/dL (<150); Uric Acid 3.2 mg/dL (2.5-8.0)
[2020-07-24] MEDS: IBUPROFEN 100 MG/5 ML ORAL SUSP PO PRN ×2 (09:07→18:29)
[2020-07-24] MEDS: LEVOFLOXACIN 750 MG/150 ML BAG IV SCH (09:08)
[2020-07-24] MEDS: DOCUSATE SODIUM 100 MG CAPSULE PO SCH ×2 (09:08→20:58)
--- NOTE | 2020-07-24 12:12 | Internal Med Progress Note ---
SUBJECTIVE Subjective Patient information: Note initiated : 07/24/20 at 12:10 pm Service Date, if different from initiated Date: [] Patient: Matthias Stoll 54 y/o M admitted on 07/19/20 for SOB . Chief Complaint: [] Interval history: Mr. 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 He was evaluated in the clinic and was referred to the ER for airway management. Patient underwent tracheostomy by ENT and postoperatively hospital service was consulted for continued airway monitoring post tracheostomy. At the time of my evaluation patient is immediately postop. He is under anesthetic sedation but respond to commands and opens eyes. Patient has been incarcerated and being in [facility] but has been released during this hospitalization. Stable hemodynamics in the postoperative phase. Transition to ICU for close airway monitoring. No family members available for prior health history. 07/20-patient doing better. Ongoing trach management per ENT. No overnight fevers, respite distress, concerning symptoms. Trach education ongoing. Case discussed with Dr. Seymour ENT. Recommend softer full liquid diet. RT to continue education for trach management/suctioning -07/21 Case discussed with ENT. Recommends deflating cough and trial off liquid diet. As unable to tolerate while cuff inflated. Per ENT patient would need follow-up with radiation oncology due to complete closure of vocal cord from infiltrating mass. Transition to inpatient status. Will possibly need PEG tube placement if unable to tolerate orally. Will consult surgery accordingly. No overnight fever chills. Aggressive suctioning ongoing. No additional concerns per nursing staff. 07/22-patient status post PEG tube placement this morning. Trach care ongoing. Barium swallow today. Case discussed with radiation oncology and recommends follow-up as outpatient for evaluation of vocal cord mass. Biopsy results pending. Anticipate discharge in the next 24-48 once able to self manage tracheostomy care/PEG tube feeding 07/23-patient complains of pain at the PEG tube site. Was able to pass swallow eval and now on level 5 minced food and able to swallow without difficulty. PEG tube currently clamped. No overnight fever chills. Able to clear secretions via tracheostomy tube. White count 9.4. No additional concerns per nursing staff. Continue trach care. Case management to coordinate discharge planning possibly Saturday or Monday 07/24-continue trach and PEG care. Tolerating diet. No overnight events. Frequent suctioning. No fever chills. Stable labs and hemodynamics Constitutional Vitals: Vital Signs Temp Pulse Resp BP Pulse Ox 98.8 F 80 16 113/78 97 07/24/20 08:01 07/23/20 12:17 07/24/20 08:01 07/24/20 10:01 07/24/20 10:01 Period Temp Pulse Resp BP Sys/Chavis Pulse Ox Last 24 Hr 98 F-98.8 F 80 16-20 102-123/64-85 90-100 Intake and Output 07/23/20 07/24/20 07/24/20 21:59 05:59 13:59 Intake Total 725 65 630 Output Total 1300 825 450 Balance -575 -760 180 Weight 102.104 kg Alert, nonlabored breathing, no telemetry events, Intake & Output: Intake & Output 07/23/20 07/24/20 07/24/20 21:59 05:59 13:59 Intake Total 725 65 630 Output Total 1300 825 450 Balance -575 -760 180 Weight 102.104 kg Intake: Nourishment/Supplement quantity 240 (ml) IV 65 65 150 Oral 420 480 Output: Urine Catheter Amount 450 Void Amount 1300 825 Other: Meal Dinner Breakfast Percent of Meal Consumed 100% 100% Feeding Ability Independent Independent Nourishment/Supplement name Ensure Enlive Urine Appearance Clear Clear Urine Color Straw Straw Urine Odor Normal Normal OBJ DATA Labs CBC & Chem 7: 07/24/20 04:56 07/24/20 04:56 Labs: Abnormal Lab Results 07/24/20 07/23/20 07/23/20 04:56 05:07 05:07 RBC 4.42 L Hgb 13.2 L Hct 39.7 L Potassium Anion Gap 6.0 L Creatinine Calcium 8.5 L Total Protein 5.8 L Albumin 2.9 L 07/22/20 07/22/20 06:10 06:10 RBC 4.43 L Hgb 13.1 L Hct 39.7 L Potassium 3.2 L Anion Gap Creatinine 0.6 L Calcium 8.2 L Total Protein 5.8 L Albumin 3.1 L Meds: Medications Acetaminophen (Acetaminophen 325 Mg Tablet) 650 mg PO Q4-6HP PRN; Protocol PRN Reason: Per Pain Protocol/Fever > 101 Hydrocodone Bitart/Acetaminophen (Hydrocodone/Apap 5/325mg Tablet) 1 tab PO Q4- 6HP PRN; Protocol PRN Reason: Per Pain Protocol Bisacodyl (Bisacodyl 10 Mg Supp.Rect) 10 mg [place] Q2-3DAYS PRN PRN Reason: Constipation Docusate Sodium (Docusate Sodium 100 Mg Capsule) 100 mg PO BID [facility] Last Admin: 07/24/20 09:08 Dose: 100 mg Documented by: Hydromorphone HCl (Hydromorphone 0.5 Mg/0.5 Ml Syringe) 0.25 - 0.5 mg IV Q2HP PRN; Protocol PRN Reason: Per Pain Protocol Last Admin: 07/23/20 21:30 Dose: 0.5 mg Documented by: Acetaminophen (Ofirmev) 650 mg in 65 mls @ 130 mls/hr IV Q6HP PRN; Protocol PRN Reason: Per Pain Protocol/Fever > 101 Last Infusion: 07/24/20 05:21 Dose: Infused Documented by: Levofloxacin (Levaquin) 750 mg in 150 mls @ 100 mls/hr IV DAILY [facility]; Protocol Last Infusion: 07/24/20 10:38 Dose: Infused Documented by: Magnesium Sulfate (Magnesium Sulfate) 2 gm in 50 mls @ 50 mls/hr IV UD PRN PRN Reason: MG = or < 1.7 Potassium Chloride 40 meq/ (Dextrose) 520 mls @ 130 mls/hr IV UD PRN PRN Reason: K+ = or < 3.5 Last Infusion: 07/22/20 16:13 Dose: Infused Documented by: Ibuprofen (Ibuprofen 100 Mg/5 Ml Oral Susp) 200 mg PO TIDP PRN; Protocol PRN Reason: Pain Last Admin: 07/24/20 09:07 Dose: 200 mg Documented by: Melatonin (Melatonin 3 Mg Tablet) 3 mg PO HSP PRN PRN Reason: Insomnia Ondansetron HCl (Ondansetron 4 Mg Odt Tablet) 4 mg SL Q4-6HP PRN; Protocol PRN Reason: Nausea And Vomiting Ondansetron HCl (Ondansetron 4 Mg/2 Ml Vial) 4 mg IV Q4-6HP PRN; Protocol PRN Reason: Nausea And Vomiting Polyethylene Glycol (Polyethylene Glycol 3350 17 Gm Packet) 17 gm PO DAILYP PRN PRN Reason: Constipation Last Admin: 07/24/20 09:08 Dose: 17 gm Documented by: Senna/Docusate Sodium (Sennosides/Docusate Sodium 1 Tab Tablet) 1 tab PO HS [facility] Last Admin: 07/23/20 20:38 Dose: 1 tab Documented by: Sodium Chloride (0.9 % Sodium Chloride 10 Ml Syringe) 10 ml IV Q8 [facility] Last Admin: 07/24/20 04:52 Dose: 10 ml Documented by: A/P Narrative A/P Narrative: * 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 Ongoing daily suctioning/RT assisted training per ENT recommendations. ENT recommends outpatient follow-up with radiation oncology for further management of infiltrating vocal cord mass. Biopsies pending. Case discussed with radiation oncology and recommends outpatient follow-up for evaluation.Preliminary vocal cord biopsy pathology results reveals complex histology suspicious for squamous papilloma versus squamous cell carcinoma. Final results awaited * dysphagia secondary to vocal cord mass/tracheostomy. Status post PEG tube placement. Clear speech eval/barium and now on level 5 diet. PEG tube currently clamped * Right basilar pneumonia-clinically improving with continued antibiotic * Prophylaxis SCDs Plan * Continue postoperative care/tracheostomy care per ENT * Diet per ST recommendations * PEG tube clamped, use as needed * Continue antibiotic for additional 48 hours * Continue pain management * Discharge likely in 24-48 hours, case management to coordinate outpatient follow-up with rad On[facility]/PCP Time Spent With Patient Time: Total time spent is greater than 50% in coordination of care (as documented) at patient's floor/unit and/or counseling patient: QUALITY VTE Deep Vein Thrombosis/Pulmonary Embolism Present on Admission: No
[2020-07-24] MEDS: SENNOSIDES/DOCUSATE SODIUM 1 TAB TABLET PO SCH (20:58)
[2020-07-24] MEDS: HYDROcodone/APAP 5/325MG TABLET PO PRN (22:09)
[2020-07-25] MEDS: 0.9 % SODIUM CHLORIDE 10 ML SYRINGE IV SCH (05:18)
[2020-07-25] MEDS: DOCUSATE SODIUM 100 MG CAPSULE PO SCH (08:09)
[2020-07-25] MEDS: LEVOFLOXACIN 750 MG/150 ML BAG IV SCH (08:09)
[2020-07-25] MEDS: HYDROcodone/APAP 5/325MG TABLET PO PRN (08:12)
[2020-07-25 08:43] LABS: Basophils # (Auto) 0.05 K/mcL (0.00-0.20); Basophils % (Auto) 0.6 % (0.0-2.0); Eosinophils # (Auto) 0.69 K/mcL (0.00-0.70); Eosinophils % (Auto) 7.7 % (0.0-7.0); Hematocrit 44.7 % (41.0-55.0); Hemoglobin 14.8 g/dL (13.5-16.5); Lymphocytes # (Auto) 1.77 K/mcL (1.50-4.80); Lymphocytes % (Auto) 19.7 % (15.0-49.0); Mean Cell Volume 89.2 fL (80.0-100.0); Mean Corpuscular HGB Conc 33.1 g/dL (31.0-36.0); Mean Platelet Volume 9.2 fL (7.4-10.4); Monocytes # (Auto) 0.65 K/mcL (0.10-0.90); Monocytes % (Auto) 7.2 % (1.0-12.0); Neutrophils % (Auto) 64.8 % (38.0-78.0); Platelet Count 331 K/mcL (140-440); RBC 5.01 M/mcL (4.50-5.90); Red Cell Distribution Width 13.9 % (11.5-14.5)
[2020-07-25 09:15] LABS: ALT/SGPT 11 U/L (<40); AST/SGOT 12 U/L (<40); Albumin 3.6 gm/dL (3.2-5.2); Alkaline Phosphatase 51 U/L (39-117); Bilirubin,Direct < 0.2 mg/dL (0-0.3); Bilirubin,Total 0.3 mg/dL (0.1-1.0); Blood Urea Nitrogen 13 mg/dL (6-20); Calcium 9.6 mg/dL (8.6-10.4); Carbon Dioxide 28 mmol/L (22-30); Chloride 101 mmol/L (96-108); Globulin 3.5 gm/dL (2.2-3.7); Glomerular Filtration Rate 108; Glucose 91 mg/dL (70-105); Lactate Dehydrogenase 192 U/L (135-225); Phosphorous 3.7 mg/dL (2.5-4.5); Triglycerides 111 mg/dL (<150); Uric Acid 3.1 mg/dL (2.5-8.0)
--- NOTE | 2020-07-25 14:17 | Discharge Summary ---
Discharge Provider Provider Patient information: Note initiated : 07/25/20 at 2:12 pm Service Date, if different from initiated Date: [] Patient: Matthias Stoll 54 y/o M admitted on 07/19/20 for SOB . 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 Continue daily suctioning per ENT recommendations. Schedule outpatient follow-up with radiation oncology/oncology for further management of infiltrating vocal cord mass. Fax biopsy results once available to centers of oncology. Follow-up PCP in 5 to 7 days * dysphagia secondary to vocal cord mass/tracheostomy. Status post PEG tube placement. Cleared speech eval/barium and now on level 5 diet. PEG tube currently clamped. * Right basilar pneumonia-clinically resolved. DC antibiotics. Brief hospital course Mr. 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 He was evaluated in the clinic and was referred to the ER for airway management. Patient underwent tracheostomy by ENT and postoperatively hospital service was consulted for continued airway monitoring post tracheostomy. At the time of my evaluation patient is immediately postop. He is under anesthetic sedation but respond to commands and opens eyes. Patient has been incarcerated and being in [facility] but has been released during this hospitalization. Stable hemodynamics in the postoperative phase. Transition to ICU for close airway monitoring. No family members available for prior health history. 07/20-patient doing better. Ongoing trach management per ENT. No overnight fevers, respite distress, concerning symptoms. Trach education ongoing. Case discussed with Dr. Seymour ENT. Recommend softer full liquid diet. RT to continue education for trach management/suctioning -07/21 Case discussed with ENT. Recommends deflating cough and trial off liquid diet. As unable to tolerate while cuff inflated. Per ENT patient would need follow-up with radiation oncology due to complete closure of vocal cord from infiltrating mass. Transition to inpatient status. Will possibly need PEG tube placement if unable to tolerate orally. Will consult surgery accordingly. No overnight fever chills. Aggressive suctioning ongoing. No additional concerns per nursing staff. 07/22-patient status post PEG tube placement this morning. Trach care ongoing. Barium swallow today. Case discussed with radiation oncology and recommends follow-up as outpatient for evaluation of vocal cord mass. Biopsy results pending. Anticipate discharge in the next 24-48 once able to self manage tracheostomy care/PEG tube feeding 07/23-patient complains of pain at the PEG tube site. Was able to pass swallow eval and now on level 5 minced food and able to swallow without difficulty. PEG tube currently clamped. No overnight fever chills. Able to clear secretions via tracheostomy tube. White count 9.4. No additional concerns per nursing staff. Continue trach care. Case management to coordinate discharge planning possibly Saturday or Monday 07/24-continue trach and PEG care. Tolerating diet. No overnight events. Frequent suctioning. No fever chills. Stable labs and hemodynamics 07/25-patient doing well. Discharging home with advised to follow-up with oncology at [facility] in a week. Continue trach care as advised by Dr. Magana. Trach supplies and suctioning as per RT. continue PEG tube care. Please cc copies of path biopsies to oncology. Scheduled oncology appointment prior to discharge. Continue diet as advised by Date of admission: 07/19/20 18:40 Discharge date: 07/25/20 Primary care physician: Jim Allison Consults: 07/20/20 07:32 Consult to Physician [CONS] Routine Comment: Consulting Provider: Sanya Gunter Reason For Exam: Physician to Consult Consult to Physician [CONS] Routine Comment: Consulting Provider: Jatinder Brandon Reason For Exam: Physician to Consult Discharge Meds Discharge Medications Home Medications No Known Home Meds 07/19/20 [History Confirmed 07/20/20 Last Taken Unknown] COURSE Hospital Course Hospital course: , Discharge diagnosis: Laryngeal cancer/stridor Time Spent with Patient Time attestation: Total time spent providing and/or coordinating discharge services: EXAM Constitutional Vitals: Temp Pulse Resp BP Pulse Ox 98.4 F 80 20 107/80 100 07/25/20 00:01 07/23/20 12:17 07/24/20 18:01 07/25/20 06:02 07/25/20 06:02 Discharge Data Data Completed and Pending Labs on day of discharge: Labs from last 24 hours 07/25/20 07/25/20 07:44 07:44 WBC 9.0 RBC 5.01 Hgb 14.8 Hct 44.7 MCV 89.2 MCH 29.5 MCHC 33.1 RDW 13.9 Plt Count 331 MPV 9.2 Neut % (Auto) 64.8 Lymph % (Auto) 19.7 Cache % (Auto) 7.2 Eos % (Auto) 7.7 H Baso % (Auto) 0.6 Lymph # (Auto) 1.77 Cache # (Auto) 0.65 Eos # (Auto) 0.69 Baso # (Auto) 0.05 Absolute Neutrophils 5.81 Sodium 137 Potassium 4.6 Chloride 101 Carbon Dioxide 28 Anion Gap 8.0 BUN 13 Creatinine 0.7 GFR Calculation 108 Glucose 91 Uric Acid 3.1 Calcium 9.6 Phosphorus 3.7 Magnesium 2.3 Total Bilirubin 0.3 Direct Bilirubin < 0.2 GGT 14 AST 12 ALT 11 Alkaline Phosphatase 51 Lactate Dehydrogenase 192 Total Protein 7.1 Albumin 3.6 Globulin 3.5 Albumin/Globulin Ratio 1.0 Triglycerides 111 Discharge Plan Patient/Caregiver Discharge Instructions Activity: increase activity as tolerated Diet: Regular Diet Instructions: Tracheostomy Care (DC), How to Use and Care for Your PEG Tube (DC) Activity Restrictions/Additional Instructions: [employer] will deliver your trach supplies Follow-up with oncology in 5 to 7 days. Please schedule appointment Fax biopsy pathology results to oncology This discharge packet is provided to you to help keep you informed about your care. We want to ensure you get everything you need when you go home. You will also be receiving a call from us in a few days to follow up with you and see how you are doing since your discharge. This gives us a chance to listen to any concerns you maybe experiencing since you were discharged or any additional needs you may have, as well as providing us feedback on your care experience. We strive to always provide excellent care and thank you for your feedback and for choosing [facility]. Prescriptions: No Action No Known Home Meds RF: 0 Follow Up Plan Follow up with: [facility] [Other] (A rerral has been sent, they will contact you to schedule an appointment.) Jatinder Brandon MD [Physician] - (Dr. Brandon's office will contact you when they recieve your path report to schedule a follow up appointment. They need to remove your stitches at this time also.) Jim Allison MD [Primary Care Provider] - 07/29/20 10:00 am Patient Disposition: Home, Self-Care Rehab Potential: Fair I certify that the patient requires SNF services: No Overall status at discharge: patient is progressing back to baseline Discharge Orders: Discharge Order (Routine); Ordered 07/25/20 Ordered By: Sanya MACIAS VTE Deep Vein Thrombosis/Pulmonary Embolism Present on Admission: No
--- NOTE | 2020-07-26 12:30 | Surgical Pathology Report ---
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 (RLF) Comments The biopsy shows a squamous proliferation with erosion, inflammation and cytologic and architectural atypia. The case is sent to [facility] for review and the above represents the ada accommodation consultant diagnosis (Dr. Marino Gray; see consultation report). The histologic findings in concert with the clinical presentation of an obstructing mass are suspicious for squamous cell carcinoma, and the differential diagnosis includes verrucous carcinoma, carcinoma cuniculatum and conventional well-differentiated squamous cell carcinoma. Clinical correlation is recommended. Clinical History Vocal cord mass. Microscopic Description: Immunohistochemical studies and special stains are performed. No fungal organisms are identified (PAS and GMS stains with adequate technical controls). The squamous proliferation is positive for pancytokeratin and negative for p16 overexpression. Gross Description Received in formalin labeled vocal cord biopsy, are three fragments of cerrato-tyson tissue ranging in size from 0.3 x 0.3 x 0.3 to 1.4 x 0.3 x 0.3 cm. Totally submitted - one cassette. (KGW:sln) IHC Disclaimer Some of the tests reported may not have been cleared or approved by the U.S. Food Drug Administration (FDA). However, the FDA has determined that such clearance or approval is not necessary. Pursuant to the requirements of CLIA, this laboratory has established and verified the accuracy and precision of all tests, and additional information about these tests is available upon request. All technical controls are adequate. Electronically Signed Attachment Electronically Signed 07/26/2020 12:26
== END 2020-07-25 16:30 | disposition home or self-care (01) | DRG 11 ==
LOC: ED 14:30 → SUR 16:40 → ICU 16:40 → SUR 16:44 → OBSVTOIN 18:40
PROVIDERS: ADMIT Internal Medicine; ATTEND Internal Medicine

== ENCOUNTER 2022-03-23 09:08 | Inpatient (IN) ==
[2022-03-23] MEDS ORDERED: IOPAMIDOL 100 ML BOTTLE IV ONE (09:09)
--- NOTE | 2022-03-23 09:26 | Emergency Department Note ---
HPI General Chief complaint: Abdominal Pain Stated complaint: Stomach pain Time Seen by Provider: 03/23/22 09:26 Source: patient Mode of arrival: ambulatory Limitations: no limitations History of Present Illness HPI Narrative: Narrative: Patient is a 56-year-old male with a history of laryngeal cancer, trach, and PEG tube who presents to the emergency department due to abdominal pain. Patient states that he began to have abdominal pain on Saturday. He states that he has been constant since then with periods of severe worsening. He states that it is sharp in nature and mostly in the right lower part of his abdomen. He denies radiation of the pain. He states that certain positions seem to worsen his pain . He endorses decrease in appetite, and states he has not eaten since the pain started. He denies any other palliative or provocative factors. He endorses decrease in frequency of urination despite drinking more water. He endorses chills and lightheadedness. He denies any other symptoms at this time. Related Data Home Medications Medication Instructions Recorded Confirmed omeprazole 10 mg capsule,delayed 10 mg PO DAILY 03/23/22 03/23/22 release Allergies Allergy/AdvReac Type Severity Reaction Status Date / Time No Known Drug Allergies Allergy Verified 03/02/21 10:34 Review of Systems ROS ROS Narrative: Narrative: Constitutional: Reports chills; Denies fever or weakness Eyes: Denies eye pain or vision change ENT ED: Denies throat pain or rhinorrhea Cardiovascular: Denies chest pain, dyspnea on exertion, orthopnea or edema Respiratory: Denies shortness of breath or cough Gastrointestinal: Reports abdominal pain and constipation; Denies nausea, vomiting, diarrhea, hematochezia or melena Genitourinary: Denies dysuria or frequency (Decreased frequency) Musculoskeletal: Denies back pain or myalgia Integumentary: Denies rash or lesions Neurological: Denies headache, weakness, numbness, confusion, abnormal gait or dizziness Endocrine: Denies fatigue or polyuria Hematological/Lymphatic: Denies easy bleeding or easy bruising [facility] Narrative Patient History Narrative: Narrative: Medical/Surgical/Family History All Active Problems (Updated 03/24/22 @ 07:57 by Marino Marr MD) Partial small bowel obstruction (Acute) Dehydration, moderate (Acute) Appendicitis with perforation (Acute) S/P percutaneous endoscopic gastrostomy (PEG) tube placement (Acute) Underweight (Chronic) Pain in right shoulder (Chronic) History of esophageal cancer (Chronic) History of cigarette smoking (Chronic) Polyp of vocal cord (Chronic) Community acquired pneumonia (Chronic) Laryngeal cancer (Chronic) Medical History Community acquired pneumonia History of cigarette smoking History of esophageal cancer Laryngeal cancer Pain in right shoulder Polyp of vocal cord Underweight Surgical History History of circumcision History of placement of ear tubes History of surgery (~2020) Tumor removal from neck x2 Family History Other No pertinent family history Social History Smoking Status: Former smoker Alcohol Intake Frequency: former alcohol drinker Substance Use: does not use Exam Narrative Narrative: Narrative: General Limitations: no limitations General appearance: Present alert and in no apparent distress; Absent anxious, appears intoxicated or sleepy Head Head: Present atraumatic and normocephalic Eye Eye: Present EOMI; Absent scleral icterus or nystagmus ENT ENT: Present mucous membranes moist; Absent nasal congestion Neck Neck: Present full ROM; Absent tenderness Chest Chest: Present normal inspection and symmetric chest wall rise Respiratory Respiratory: Present normal lung sounds bilaterally; Absent respiratory distress or accessory muscle use Cardiovascular Cardiovascular: Present regular rate, normal rhythm and normal heart sounds Adbominal Abdominal: Present soft, tenderness, guarding and normal bowel sounds; Absent distention, rebound or rigidity Extremities Extremities: Present normal inspection and full ROM Back Back: Present normal inspection and full ROM Neurological Neurological: Present alert and oriented X3 Psychiatric Psychiatric: Present normal affect and normal mood Skin Skin: Present warm (WNL), dry and normal color Course Vital Signs Vital signs: Vital Signs Temperature 97.9 F 03/23/22 09:13 Pulse Rate 101 H 03/23/22 09:13 Respiratory Rate 22 03/23/22 09:13 Blood Pressure 125/87 03/23/22 09:13 Pulse Oximetry (%) 97 03/23/22 09:13 Oxygen Delivery Method 03/23/22 09:13 Temperature 98.3 F 03/24/22 03:11 Pulse Rate 88 03/24/22 03:11 Respiratory Rate 20 03/24/22 03:11 Blood Pressure 106/72 03/24/22 03:11 Pulse Oximetry (%) 96 03/24/22 03:11 Oxygen Delivery Method 03/24/22 03:11 Oxygen Flow Rate (L/min) 2 03/23/22 15:58 MDM MDM Narrative Medical decision making narrative: Narrative: Patient is a 56-year-old male with a history of laryngeal cancer, trach, and PEG tube who presents to the emergency department due to abdominal pain. Differential diagnoses include UTI, colitis, appendicitis, and small bowel obstruction. Patient's labs demonstrate a mild leukocytosis and elevated BUN and creatinine. CT scan is concerning for partial small bowel obstruction, as well as pericecal and periappendiceal inflammation. I have spoken to Dr. Tang regarding patient and he agreed to see and evaluate patient for admission. Lab Data Result diagrams: 03/24/22 05:36 03/24/22 05:36 Labs: Lab Results 03/23/22 03/23/22 03/23/22 Range/Units 09:41 09:55 09:55 WBC 11.1 H (4.5-11.0) K/mcL RBC 5.40 (4.63-6.08) M/mcL Hgb 16.2 (13.7-17.5) g/dL Hct 49.1 (40.1-51.0) % POC Hct 49.0 (41-55) MCV 90.9 (80.0-100.0) fL MCH 30.0 (26.0-34.0) pg MCHC 33.0 (31.0-36.0) g/dL RDW 13.2 (11.5-14.5) % Plt Count 272 (140-440) K/mcL MPV 9.9 (8.8-12.5) fL Immature Gran % (Auto) 0.6 H (0.0-0.5) % Neut % (Auto) 87.2 H (38.0-78.0) % Lymph % (Auto) 4.1 L (15.5-49.0) % [place] % (Auto) 6.3 (1.0-12.0) % Eos % (Auto) 1.5 (0.0-7.0) % Baso % (Auto) 0.3 (0.0-2.0) % Lymph # (Auto) 0.45 L (1.50-4.80) K/mcL [place] # (Auto) 0.70 (0.10-0.90) K/mcL Eos # (Auto) 0.17 (0.00-0.70) K/mcL Baso # (Auto) 0.03 (0.00-0.30) K/mcL Immature Gran # 0.07 H (0.00-0.05) K/mcl Absolute Neutrophils 9.66 H (1.80-8.00) K/mcL POC Sodium 133 (133-145) POC Potassium 5.0 (3.3-5.1) POC Chloride 97 (96-108) POC Total CO2 30.0 (22-30) POC BUN 26 H (6-20) POC Creatinine 1.3 H (0.6-1.2) POC Glucose 127 H (70-105) POC WB Ioniz Calcium 1.18 (1.16-1.32) Total Bilirubin 0.5 (0.1-1.0) mg/dL Direct Bilirubin < 0.2 (0-0.3) mg/dL AST 13 (<40) U/L ALT 16 (<40) U/L Alkaline Phosphatase 79 (39-117) U/L Total Protein 7.4 (5.9-8.4) gm/dL Albumin 3.9 (3.2-5.2) gm/dL Globulin 3.5 (2.2-3.7) gm/dL Lipase 10 (7-60) U/L Discharge Plan Patient/Caregiver Discharge Instructions Pt seen by [facility]/PA only: No Clinical Impression: Partial small bowel obstruction Patient Disposition: Xfer As Inpt ([facility]) Discharge Date/Time: 03/23/22 12:44
[2022-03-23] MEDS ORDERED: LACTATED RINGERS 1,000 ML IV ONE (09:41)
[2022-03-23] MEDS ORDERED: morphine 4 MG/ML VIAL IV ONE (09:41)
[2022-03-23] MEDS ORDERED: ONDANSETRON 4 MG/2 ML VIAL IV ONE (09:41)
[2022-03-23 09:58] LABS: POC Calcium, Ionized 1.18 (1.16-1.32); POC Creatinine 1.3 (0.6-1.2)
[2022-03-23 10:43] LABS: Basophils # (Auto) 0.03 K/mcL (0.00-0.30); Basophils % (Auto) 0.3 % (0.0-2.0); Eosinophils # (Auto) 0.17 K/mcL (0.00-0.70); Eosinophils % (Auto) 1.5 % (0.0-7.0); Hematocrit 49.1 % (40.1-51.0); Hemoglobin 16.2 g/dL (13.7-17.5); Lymphocytes # (Auto) 0.45 K/mcL (1.50-4.80); Lymphocytes % (Auto) 4.1 % (15.5-49.0); Mean Cell Volume 90.9 fL (80.0-100.0); Mean Platelet Volume 9.9 fL (8.8-12.5); Monocytes % (Auto) 6.3 % (1.0-12.0); Neutrophils % (Auto) 87.2 % (38.0-78.0); Platelet Count 272 K/mcL (140-440); Red Cell Distribution Width 13.2 % (11.5-14.5); WBC 11.1 K/mcL (4.5-11.0)
--- NOTE | 2022-03-23 10:46 | Cat Scan Report ---
CLINICAL INFORMATION: Abdominal pain COMPARISON: None. TECHNIQUE: Following enteric contrast, 80 cc of Isovue-370 were injected intravenously, and 60 seconds later, 0.625 mm helical slices were obtained from the mid heart through the subtrochanteric regions. Following reconstruction, 2.5 mm sagittal, coronal and axial reformatted images were processed and reviewed at bone, lung and soft tissue windows. Five minutes later, 0.625 mm helical slices were obtained from the mid heart through the kidneys and viewed at soft tissue windows.The exam was performed using radiation dose optimization techniques including, but not limited to, automated exposure control, adjustment of the mA and/or kV according to patient size and use of iterative reconstruction technique. FINDINGS: The lung bases are clear. No effusions. The visualized heart is grossly normal. Abdominal images show the gallbladder and bile ducts, liver, both kidneys, adrenal glands, spleen, pancreas and aorta, including aortic branches, are normal in size, configuration and attenuation without focal lesion. There is no free air, free fluid or adenopathy. Pelvic images show mild wall thickening urinary bladder which may be related to underdistention. Prostate and seminal vesicles are normal. The stomach, duodenum, jejunum and proximal ileum are mildly dilated to the transition point in the mid ileum in the right lower quadrant best seen on coronal image 36. The distal ileum is decompressed. There is moderate inflammation in the pericecal and periappendiceal region with phlegmon in these areas. The appendix is identified in the medial pericecal region appears slightly dilated. Bone windows show no osseous abnormality IMPRESSION: Moderate inflammation in the pericecal and periappendiceal region with partial small bowel obstruction of the distal ileum. In this case, the appendix is likely secondarily involved from either primary ileitis or colitis. Interpreted and Authenticated by: Charlie Leahy 03/23/22
[2022-03-23] MEDS ORDERED: ONDANSETRON 4 MG/2 ML VIAL IV PRN (10:58)
[2022-03-23] MEDS ORDERED: LACTATED RINGERS 1,000 ML IV SCH (11:00)
[2022-03-23 11:10] LABS: ALT/SGPT 16 U/L (<40); AST/SGOT 13 U/L (<40); Albumin 3.9 gm/dL (3.2-5.2); Alkaline Phosphatase 79 U/L (39-117); Bilirubin,Direct < 0.2 mg/dL (0-0.3); Bilirubin,Total 0.5 mg/dL (0.1-1.0); Globulin 3.5 gm/dL (2.2-3.7)
[2022-03-23] MEDS ORDERED: PIPERACILLIN SODIUM/TAZOBACTAM 3.375 GM in DEXTROSE 5% IN WATER 50 ML IV ONE (11:18)
[2022-03-23] MEDS: HYDROmorphone 0.5 MG/0.5 ML SYRINGE IV PRN ×3 (13:12→20:46)
[2022-03-23] MEDS ORDERED: PROMETHAZINE 25 MG/ML VIAL IV PRN (14:43)
--- NOTE | 2022-03-23 15:12 | General Surg History&Physical ---
HPI History of Present Illness Patient information: Note initiated : 03/23/22 at 2:59 pm Service Date, if different from initiated Date: [] Patient: Matthias Stoll a 56 y/o M admitted on 03/23/22 for Stomach pain. Chief Complaint: [] Chief complaint: Acute abdomen; pericecal phlegmon History of present illness: Mr. Stoll is a 56 year old M with history of onset of abdominal pain in the mid abdomen on 17 March 2.2. The pain increased in severity and localized to the right lower quadrant. This was followed by intermittent episodes of severe nausea with vomiting. The pain has become increasingly more severe on the right lower quadrant and he has been anorexic since onset with evidence of mild dehydration. Patient has not had similar pain in the past. CT shows a major phlegmon involving the cecum, terminal ileum and appendix. Most likely diagnosis is perforated appendix with phlegmon formation. Patient is counseled for attempted laparoscopic appendectomy with possible open. He will get antibiotics tonight and will be hydrated. Plan is for operative treatment in the morning. Constitutional Constitutional: Present anorexia, fatigue, fever(s), lethargy, malaise, night sweats and weight loss EENT Nose, mouth and throat: Present dry mouth, hoarseness (History of partial laryngectomy and tracheostomy) and sore throat Respiratory Respiratory: Absent cough or wheezing Gastrointestinal Gastrointestinal: Present abdominal pain, bloating, change in bowel habits, cramping, dyspepsia, early satiety, nausea and vomiting Psychiatric Psychiatric: Present depression Hematologic/Lymphatic Hematologic/Lymphatic: Absent easy bleeding, easy bruising or lymphadenopathy Allergic/Immunologic Allergic/Immunologic: Absent tongue swelling, throat swelling, uticaria, wheezing or lip swelling PFSH PFSH All Active Problems (Updated 03/23/22 @ 15:11 by Breonna Tang MD) Dehydration, moderate (Acute) Appendicitis with perforation (Acute) S/P percutaneous endoscopic gastrostomy (PEG) tube placement (Acute) Underweight (Chronic) Pain in right shoulder (Chronic) History of esophageal cancer (Chronic) History of cigarette smoking (Chronic) Polyp of vocal cord (Chronic) Community acquired pneumonia (Chronic) Laryngeal cancer (Chronic) Medical History Community acquired pneumonia History of cigarette smoking History of esophageal cancer Laryngeal cancer Pain in right shoulder Polyp of vocal cord Underweight Surgical History History of circumcision History of placement of ear tubes History of surgery (~2020) Tumor removal from neck x2 Family History Other No pertinent family history Social History marital status: occupational status: employed physical activity: none smoking status: Current every day smoker alcohol intake frequency: former alcohol drinker substance use type: does not use additional history: Quit smoking in 2020. MEDS/ALLERGIES Home Medications and Allergies Home Medications Medication Instructions Recorded Confirmed Type omeprazole 10 mg capsule,delayed 10 mg PO DAILY 03/23/22 03/23/22 History release Allergies Allergy/AdvReac Type Severity Reaction Status Date / Time No Known Drug Allergies Allergy Verified 03/02/21 10:34 Physical Examination Vital Signs Vital signs: Temp Pulse Resp BP Pulse Ox O2 Del Method 97.9 F 87 18 114/86 97 03/23/22 12:44 03/23/22 12:44 03/23/22 12:44 03/23/22 12:44 03/23/22 12:44 03/23/22 12:44 General physical appearance General physical exam: moderate distress, severe pain and chronically ill Eyes Eye exam: PERRL and normal ocular movement ENT ENT exam: poor fdc (6 lower teeth) and dentures (Upper dentures) Head Head exam IM: Present atraumatic, normal inspection and normocephalic Neck Neck exam: no masses, no bruits, no lymphadenopathy and other ( healing tracheostomy site) Cardiovascular Cardiovascular exam IM: Present normal rate and rhythm, RRR, +S1 and +S2; Absent JVD Respiratory Respiratory exam: normal expansion, normal respiratory effort and clear to auscultation Abdomen Abdomen: Present tender (Tenderness with guarding right lower quadrant), masses (Right lower quadrant) and distended Integumentary Integumentary: Present no rash, no growths and no abnormal pigmentation Neurologic Neurologic: Present normal coordination and normal sensation Musculoskeletal Musculoskeletal: Present normal gait and normal posture Psychiatric Psychiatric: Present oriented to time, oriented to person, oriented to place, speech is normal and memory intact Results Labs Result diagrams: 03/23/22 09:41 Labs: Abnormal lab results 03/23/22 03/23/22 Range/Units 09:41 09:55 WBC 11.1 H (4.5-11.0) K/mcL Immature Gran % (Auto) 0.6 H (0.0-0.5) % Neut % (Auto) 87.2 H (38.0-78.0) % Lymph % (Auto) 4.1 L (15.5-49.0) % Lymph # (Auto) 0.45 L (1.50-4.80) K/mcL Immature Gran # 0.07 H (0.00-0.05) K/mcl Absolute Neutrophils 9.66 H (1.80-8.00) K/mcL POC BUN 26 H (6-20) POC Creatinine 1.3 H (0.6-1.2) POC Glucose 127 H (70-105) Diabetes panel 03/23/22 Range/Units 09:55 AST 13 (<40) U/L ALT 16 (<40) U/L Alkaline Phosphatase 79 (39-117) U/L Total Protein 7.4 (5.9-8.4) gm/dL Albumin 3.9 (3.2-5.2) gm/dL Calcium panel 03/23/22 Range/Units 09:55 Albumin 3.9 (3.2-5.2) gm/dL Adrenal panel 03/23/22 Range/Units 09:55 Total Bilirubin 0.5 (0.1-1.0) mg/dL AST 13 (<40) U/L ALT 16 (<40) U/L Alkaline Phosphatase 79 (39-117) U/L Total Protein 7.4 (5.9-8.4) gm/dL Albumin 3.9 (3.2-5.2) gm/dL All other labs normal. A/P Assessment and plan (1) Appendicitis with perforation: Status: Acute (2) History of esophageal cancer: Status: Chronic (3) Laryngeal cancer: Status: Chronic (4) Dehydration, moderate: Status: Acute Plan IV hydration tonight Zosyn 3.375 g IV every 6 hours Attempt at laparoscopic appendectomy in a.m. but will probably need open Time Spent With Patient Time: Total time spent is greater than 50% in coordination of care (as documented) at patient's floor/unit and/or counseling patient:
--- NOTE | 2022-03-23 15:13 | XRay Report ---
CLINICAL INFORMATION: Preop COMPARISON: None. TECHNIQUE: Portable FINDINGS: The heart size, mediastinum and pulmonary vessels are unremarkable. The lungs are clear. There are no effusions. The bones and soft tissues are within normal limits. IMPRESSION: Normal chest. Interpreted and Authenticated by: Charlie Leayh 03/23/22
[2022-03-23] MEDS: ACETAMINOPHEN 1,000 MG/100 ML BAG IV SCH ×2 (15:52→20:47)
[2022-03-23 16:37] LABS: INR 1.1 (0.9-1.1); Prothrombin Time 14.3 sec (11.9-14.5)
[2022-03-23] MEDS: PIPERACILLIN SODIUM/TAZOBACTAM 3.375 GM in DEXTROSE 5% IN WATER 50 ML IV SCH (17:07)
[2022-03-23] MEDS: LACTATED RINGERS 1,000 ML IV SCH ×3 (18:17→20:48)
[2022-03-23 18:24] LABS: Appearance,Urine CLEAR (Clear); Bilirubin,Urine NEGATIVE (Negative); Color,Urine YELLOW; Culture Indicated,Urine No; Glucose,Urine (UA) NEGATIVE (Negative); Ketones,Urine TRACE mg/dL (Negative); Leukocyte Esterase,Urine NEGATIVE /uL (Negative); Mucus,Urine FEW /hpf; Nitrate,Urine NEGATIVE (Negative); PH,Urine 5.5 (5.0-9.0); Protein,Urine TRACE mg/dL (Negative); Specific Gravity,Urine 1.025 (1.000-1.035); Urine Blood NEGATIVE ery/mcL (Negative); Urine RBC 4 /hpf (0-3); Urine Squamous Epithelial Cell < 1 /hpf (0-4); Urine WBC 1 /hpf (0-4); Urobilinogen,Urine Normal
[2022-03-24] MEDS: LACTATED RINGERS 1,000 ML IV SCH ×7 (00:38→23:19)
[2022-03-24] MEDS: PIPERACILLIN SODIUM/TAZOBACTAM 3.375 GM in DEXTROSE 5% IN WATER 50 ML IV SCH ×5 (00:38→23:20)
[2022-03-24] MEDS: ACETAMINOPHEN 1,000 MG/100 ML BAG IV SCH ×4 (03:05→21:26)
[2022-03-24] MEDS: HYDROmorphone 0.5 MG/0.5 ML SYRINGE IV PRN ×4 (03:13→19:53)
[2022-03-24 06:50] LABS: Basophils # (Auto) 0.03 K/mcL (0.00-0.30); Basophils % (Auto) 0.4 % (0.0-2.0); Eosinophils # (Auto) 0.32 K/mcL (0.00-0.70); Eosinophils % (Auto) 4.4 % (0.0-7.0); Hematocrit 41.1 % (40.1-51.0); Hemoglobin 13.1 g/dL (13.7-17.5); Lymphocytes # (Auto) 0.36 K/mcL (1.50-4.80); Lymphocytes % (Auto) 4.9 % (15.5-49.0); Mean Corpuscular HGB Conc 31.9 g/dL (31.0-36.0); Mean Platelet Volume 9.9 fL (8.8-12.5); Monocytes # (Auto) 0.58 K/mcL (0.10-0.90); Monocytes % (Auto) 7.9 % (1.0-12.0); Platelet Count 250 K/mcL (140-440); RBC 4.42 M/mcL (4.63-6.08); Red Cell Distribution Width 13.2 % (11.5-14.5); WBC 7.3 K/mcL (4.5-11.0)
[2022-03-24 07:23] LABS: ALT/SGPT 12 U/L (<40); AST/SGOT 11 U/L (<40); Alkaline Phosphatase 60 U/L (39-117); Bilirubin,Direct < 0.2 mg/dL (0-0.3); Bilirubin,Total 0.3 mg/dL (0.1-1.0); Blood Urea Nitrogen 17 mg/dL (6-20); Calcium 8.5 mg/dL (8.6-10.4); Carbon Dioxide 28 mmol/L (22-30); Chloride 94 mmol/L (96-108); Globulin 2.9 gm/dL (2.2-3.7); Glomerular Filtration Rate 101; Glucose 92 mg/dL (70-105); Lactate Dehydrogenase 111 U/L (135-225); Phosphorous 3.1 mg/dL (2.5-4.5); Triglycerides 78 mg/dL (<150); Uric Acid 2.8 mg/dL (2.5-8.0)
[2022-03-24] MEDS ORDERED: SCOPOLAMINE 1 PATCH PATCH TOPICAL PRN (08:00)
[2022-03-24] MEDS ORDERED: IPRATROPIUM/ALBUTEROL 3 ML AMPUL.NEB NEB PRN ×2 (08:00→08:55)
[2022-03-24] MEDS ORDERED: SUGAMMADEX SODIUM 200 MG/2 ML VIAL IV ONE (08:10)
[2022-03-24] MEDS ORDERED: LIDOCAINE HCL/PF 100 MG/5 ML SYRINGE IV ONE (08:10)
[2022-03-24] MEDS ORDERED: fentaNYL 100 MCG/2 ML VIAL IV ONE (08:10)
[2022-03-24] MEDS ORDERED: HYDROmorphone 1 MG/ML SYRINGE ONE (08:10)
[2022-03-24] MEDS ORDERED: ROCURONIUM 10 MG/ML ML IV ONE (08:10)
[2022-03-24] MEDS ORDERED: ONDANSETRON 4 MG/2 ML VIAL ONE (08:10)
[2022-03-24] MEDS ORDERED: SUCCINYLCHOLINE 20 MG/ML ML IV ONE (08:10)
[2022-03-24] MEDS ORDERED: PROPOFOL 200 MG/20 ML VIAL IV ONE (08:10)
[2022-03-24] MEDS ORDERED: HYDROmorphone 0.5 MG/0.5 ML SYRINGE IV PRN (08:55)
[2022-03-24] MEDS ORDERED: ACETAMINOPHEN 1,000 MG/100 ML BAG IV ONE (08:55)
[2022-03-24] MEDS ORDERED: PROMETHAZINE 25 MG/ML VIAL IV PRN (08:55)
[2022-03-24] MEDS ORDERED: METHOCARBAMOL 1,000 MG/10 ML VIAL IV PRN (08:55)
[2022-03-24] MEDS ORDERED: LABETALOL 5 MG/ML ML IV PRN (08:55)
[2022-03-24] MEDS ORDERED: fentaNYL 100 MCG/2 ML VIAL IV PRN (08:55)
[2022-03-24] MEDS ORDERED: NALOXONE HCL 0.4 MG/ML VIAL IV PRN (08:55)
[2022-03-24] MEDS ORDERED: LACTATED RINGERS 1,000 ML IV SCH (09:00)
--- NOTE | 2022-03-24 09:25 | Brief Operative Note ---
Brief Operative Note Date of procedure: 03/24/22 Pre-op diagnosis: acute appendicitis with phegmon Post-op diagnosis: other (acute appendicitis with phegmon) Procedure: laparoscopic appendectomy Grafts/Implants: No (endy drain x1) Anesthesia: GETA Findings: acute suppurative appendicitis with phlegmon involving omentum, terminal ileum ,cecum and appendix Complications: none Surgeon: Breonna Tang Estimated blood loss (cc): 10 Specimens Removed/Pathology: other (appendix) Condition: stable Disposition: PACU
[2022-03-24] MEDS: oxyCODONE HCL 5 MG TABLET PO PRN (16:32)
[2022-03-25] MEDS: HYDROmorphone 0.5 MG/0.5 ML SYRINGE IV PRN ×3 (00:24→09:04)
[2022-03-25] MEDS: LACTATED RINGERS 1,000 ML IV SCH ×4 (04:00→17:15)
[2022-03-25] MEDS: ACETAMINOPHEN 1,000 MG/100 ML BAG IV SCH ×2 (04:01→10:58)
[2022-03-25] MEDS: PIPERACILLIN SODIUM/TAZOBACTAM 3.375 GM in DEXTROSE 5% IN WATER 50 ML IV SCH ×3 (05:29→17:15)
[2022-03-25 06:24] LABS: Basophils # (Auto) 0.02 K/mcL (0.00-0.30); Basophils % (Auto) 0.4 % (0.0-2.0); Eosinophils # (Auto) 0.33 K/mcL (0.00-0.70); Eosinophils % (Auto) 5.8 % (0.0-7.0); Hematocrit 39.1 % (40.1-51.0); Hemoglobin 12.3 g/dL (13.7-17.5); Lymphocytes % (Auto) 5.3 % (15.5-49.0); Mean Cell Volume 95.1 fL (80.0-100.0); Mean Corpuscular HGB Conc 31.5 g/dL (31.0-36.0); Mean Platelet Volume 9.7 fL (8.8-12.5); Monocytes # (Auto) 0.52 K/mcL (0.10-0.90); Monocytes % (Auto) 9.1 % (1.0-12.0); Platelet Count 230 K/mcL (140-440); RBC 4.11 M/mcL (4.63-6.08); WBC 5.7 K/mcL (4.5-11.0)
[2022-03-25 06:44] LABS: ALT/SGPT 9 U/L (<40); AST/SGOT 10 U/L (<40); Albumin 2.7 gm/dL (3.2-5.2); Alkaline Phosphatase 51 U/L (39-117); Bilirubin,Direct < 0.2 mg/dL (0-0.3); Bilirubin,Total 0.3 mg/dL (0.1-1.0); Blood Urea Nitrogen 9 mg/dL (6-20); Calcium 8.3 mg/dL (8.6-10.4); Carbon Dioxide 30 mmol/L (22-30); Chloride 95 mmol/L (96-108); Globulin 2.7 gm/dL (2.2-3.7); Glomerular Filtration Rate 101; Glucose 94 mg/dL (70-105); Lactate Dehydrogenase 107 U/L (135-225); Phosphorous 2.3 mg/dL (2.5-4.5); Triglycerides 64 mg/dL (<150); Uric Acid 1.8 mg/dL (2.5-8.0)
[2022-03-25] MEDS: oxyCODONE HCL 5 MG TABLET PO PRN (09:46)
--- NOTE | 2022-03-25 09:48 | EKG ---
[facility] Test Date: 2022-03-23 Pat Name: Matthias Stoll Department: [facility] Room: 108 Gender: Male [employer] Manager: [birth year] : [id number] Requested By: Breonna Tang Order Number: [id number] Reading MD: Iker Wu Measurements Intervals [place] Rate: 69 P: 65 NH: 155 QRS: 54 QRSD: 115 T: 60 QT: 370 QTc: 397 Interpretive Statements Sinus rhythm Incomplete right bundle branch block Baseline wander in lead(s) V1 Electronically Signed On 03-25-2022 9:47:49 PST by Iker Wu /store/[email or web address]/[id number]
[2022-03-25] MEDS ORDERED: POTASSIUM PHOSPHATE 40 MEQ in DEXTROSE 5% IN WATER 500 ML IV SCH (10:00)
--- NOTE | 2022-03-25 12:09 | Discharge Summary ---
Discharge Provider Provider IMPORTANT FOLLOW-UP INFORMATION FOR PCP: Patient information: Note initiated : 03/25/22 at 12:03 pm Service Date, if different from initiated Date: [] Patient: Matthias Stoll 56 y/o M admitted on 03/23/22 for Stomach pain. Chief Complaint: [] Date of admission: 03/23/22 12:44 Discharge date: 03/25/22 Primary care physician: Xavier Mcclelland Admitting clinician: Breonna Tang Attending physician on admission: Breonna Tang Consults: 03/23/22 Consult to Physician [CONS] Stat Comment: Consulting Provider: Breonna Tang Reason For Exam: Physician to Consult Attending physician on discharge: Breonna Tang Discharging clinician: Breonna Tang COURSE Hospital Course Hospital course: 56-year-old male who presents with a 6-day history of right lower quadrant pain. He presented to the emergency room and severe discomfort with nausea and vomiting. CT showed a phlegmon in the base of the cecum. He also had significant ileus. He has done well and remains afebrile. He had laparoscopic appendectomy yesterday. White blood count is 5.7. Patient is clinically stable and is tolerating regular diet. He is stable for discharge home. Discharge diagnosis: Acute suppurative appendicitis Secondary discharge diagnosis: Mild dehydration with acute kidney injury Reason for admission: Acute appendicitis and dehydration Procedures: Laparoscopic appendectomy Pertinent studies/significant findings: CT of abdomen and pelvis with IV contrast Complications: None Time Spent with Patient Time attestation: Total time spent providing and/or coordinating discharge services: Time spent: Less than 30 minutes Physical Examination Vital Signs Vital signs: Temp Pulse Resp BP Pulse Ox O2 Del Method O2 Flow Rate 98.4 F 77 12 113/61 96 1 03/25/22 11:38 03/25/22 11:38 03/25/22 11:38 03/25/22 11:38 03/25/22 11:38 03/25/22 11:38 03/25/22 08:00 General physical appearance General physical exam: no distress, moderate pain and chronically ill Eyes Eye exam: PERRL and normal ocular movement ENT ENT exam: decreased hearing and poor senior living Head Head exam IM: Present atraumatic, normal inspection and normocephalic Neck Neck exam: no masses, no bruits, trachea midline, no lymphadenopathy, no venous distension and other (Healing tracheostomy scar) Cardiovascular Cardiovascular exam IM: Present normal rate and rhythm, RRR, +S1 and +S2; Absent JVD or tachycardia Respiratory Respiratory exam: normal expansion, normal respiratory effort and clear to auscultation Abdomen Abdomen: Present soft and tender (Mild tenderness around port sites) Integumentary Integumentary: Present no rash, no growths and no abnormal pigmentation Neurologic Neurologic: Present normal coordination and normal sensation Musculoskeletal Musculoskeletal: Present normal gait and normal posture Psychiatric Psychiatric: Present oriented to time, oriented to person, oriented to place, speech is normal and memory intact Discharge Plan Patient/Caregiver Discharge Instructions Activity: increase activity as tolerated Diet: Regular Diet Prescriptions: New ciprofloxacin HCl [ciprofloxacin HCl] 500 mg tablet 500 mg PO BID Qty: 30 0RF oxycodone-acetaminophen [Endocet] 10-325 mg tablet 1 tab PO Q4H PRN (Reason: Pain) Qty: 30 0RF metronidazole 500 mg tablet 500 mg PO TID Qty: 40 0RF No Action omeprazole 10 mg Capsule,Delayed Release(Dr/Ec) 10 mg PO DAILY Prescription drug monitoring program results: PDMP not reviewed Follow Up Plan Follow up with: Breonna Tang MD [Physician] - (gi-[id number] up in 2 weeks) Xavier Mcclelland [Primary Care Provider] - Patient Disposition: Home, Self-Care Prognosis: Good Rehab Potential: Good I certify that the patient requires SNF services: No Overall status at discharge: patient is progressing back to baseline Discharge Orders: Discharge Order (Routine); Ordered 03/25/22 Ordered By: Breonna Tang Pending Pending Pending: Resuscitation Status Resuscitate (Full Code) Diet Regular Diet Start Sun Mar 25 799 Hydromorphone HCl (Hydromorphone 0.5 Mg/0.5 Ml Syringe) 0.5 mg IV Q2HP PRN; Protocol PRN Reason: Per Pain Protocol Last Admin: 03/25/22 09:04 Dose: 0.5 mg Documented By: DARCI Co-signed By: DI Admin: 03/25/22 05:49 Dose: 0.5 mg Documented By: Admin: 03/25/22 00:24 Dose: 0.5 mg Documented By: Admin: 03/24/22 19:53 Dose: 0.5 mg Documented By: Admin: 03/24/22 17:12 Dose: 0.5 mg Documented By: Admin: 03/24/22 15:08 Dose: 0.5 mg Documented By: Admin: 03/24/22 03:13 Dose: 0.5 mg Documented By: Admin: 03/23/22 20:46 Dose: 0.5 mg Documented By: Admin: 03/23/22 17:09 Dose: 0.5 mg Documented By: Admin: 03/23/22 13:12 Dose: 0.5 mg Documented By: KT Piperacillin Sod/Tazobactam (Sod 3.375 gm/ Dextrose) 50 mls @ 100 mls/hr IV Q6H NICOL; Protocol Last Infusion: 03/25/22 06:19 Dose: 0 mls/hr Documented By: Admin: 03/25/22 05:29 Dose: 100 mls/hr Documented By: Infusion: 03/25/22 00:21 Dose: 0 mls/hr Documented By: Admin: 03/24/22 23:20 Dose: 100 mls/hr Documented By: Infusion: 03/24/22 17:48 Dose: 0 mls/hr Documented By: Admin: 03/24/22 17:13 Dose: 100 mls/hr Documented By: Infusion: 03/24/22 12:27 Dose: 0 mls/hr Documented By: Admin: 03/24/22 11:57 Dose: 100 mls/hr Documented By: Infusion: 03/24/22 06:06 Dose: 0 mls/hr Documented By: Admin: 03/24/22 05:25 Dose: 100 mls/hr Documented By: Infusion: 03/24/22 01:08 Dose: 100 mls/hr Documented By: Admin: 03/24/22 00:38 Dose: 100 mls/hr Documented By: Infusion: 03/23/22 17:46 Dose: 0 mls/hr Documented By: Admin: 03/23/22 17:07 Dose: 100 mls/hr Documented By: VIRAJ Lactated Ringer's (Lactated Ringers) 1,000 mls @ 250 mls/hr IV .Q4H [facility] Last Admin: 03/25/22 10:41 Dose: Not Given Documented By: Admin: 03/25/22 09:25 Dose: 150 mls/hr Documented By: DARCI Co-signed By: DI Infusion: 03/25/22 09:24 Dose: 0 mls/hr Documented By: DARCI Co-signed By: DI Admin: 03/25/22 04:00 Dose: Not Given Documented By: Admin: 03/24/22 23:19 Dose: 150 mls/hr Documented By: Infusion: 03/24/22 21:57 Dose: 150 mls/hr Documented By: Admin: 03/24/22 20:12 Dose: Not Given Documented By: Admin: 03/24/22 16:44 Dose: Not Given Documented By: Infusion: 03/24/22 16:30 Dose: 150 mls/hr Documented By: Infusion: 03/24/22 11:55 Dose: 0 mls/hr Documented By: Admin: 03/24/22 10:42 Dose: 150 mls/hr Documented By: Admin: 03/24/22 07:27 Dose: Not Given Documented By: Infusion: 03/24/22 03:28 Dose: 150 mls/hr Documented By: Admin: 03/24/22 03:16 Dose: Not Given Documented By: Admin: 03/24/22 00:38 Dose: Not Given Documented By: Infusion: 03/23/22 20:49 Dose: 150 mls/hr Documented By: Admin: 03/23/22 20:48 Dose: 250 mls/hr Documented By: Infusion: 03/23/22 20:48 Dose: 150 mls/hr Documented By: Admin: 03/23/22 18:19 Dose: 250 mls/hr Documented By: Admin: 03/23/22 18:17 Dose: Not Given Documented By: REENA Acetaminophen (Ofirmev) 1,000 mg in 100 mls @ 200 mls/hr IV Q6H NICOL Stop: 03/25/22 15:59 Last Admin: 03/25/22 10:58 Dose: Not Given Documented By: Infusion: 03/25/22 04:47 Dose: 0 mls/hr Documented By: Admin: 03/25/22 04:01 Dose: 200 mls/hr Documented By: Infusion: 03/24/22 23:04 Dose: 0 mls/hr Documented By: Admin: 03/24/22 21:26 Dose: 200 mls/hr Documented By: Infusion: 03/24/22 15:51 Dose: 0 mls/hr Documented By: Admin: 03/24/22 15:04 Dose: 200 mls/hr Documented By: VIRAJ Potassium Phosphate 40 meq/ (Dextrose) 509.0909 mls @ 50.909 mls/hr IV 1000 NICOL Stop: 03/25/22 19:00 Last Admin: 03/25/22 10:32 Dose: 50 mls/hr Documented By: DARCI Co-signed By: DI Oxycodone HCl (Oxycodone Hcl 5 Mg Tablet) 10 mg PO Q4HP PRN; Protocol PRN Reason: Per Pain Protocol Last Admin: 03/25/22 09:46 Dose: 10 mg Documented By: DARCI Co-signed By: DI Admin: 03/24/22 16:32 Dose: 10 mg Documented By: VIRAJ Shift Summary 03/25/22 04:33 Shift Summary by Josefina Rouse Primary Diagnosis: Partial SBO Registration Status: IP Date of Surgery (if applicable): 03/24- Lap Appe Pertinent Medical Dx/Issue(s): Laryngeal CA, old trach, old PEG, undiagnosed sleep apnea Med management (antibiotics, diuretics, BP): Zosyn Skin/Wound Care: Surgical incision w/roman - shadow drainage, TARAH drain Vital Signs with Trends: VSS- low grade temp 99.3 O2, liter flow/saturations: apnea when sleeping - 1L Pain management (acute vs. chronic): Scheduled Ofirmev, Dilaudid x2 Lab/Rad (abnormals, trends): Na+ 130, Ca+ 8.5 Neuro/Mental Status: A/Ox4 Urinary Elimination Device: Urinal Urinary output greater than 30mL/hr? yes Date of last BM: 03/23 Lines/Tubes: LFA - LR @ 150 Activity: SBA to manage lines, patient refused to get OOB so far this shift Recommendations/questions for MD: Discharge Plan (needs, disposition, etc): TBD Patient calm and cooperative, eager to get out of hospital. To be reg diet for breakfast Initialized on 03/25/22 04:33 - END OF NOTE
--- NOTE | 2022-03-28 08:07 | Operative Note ---
DATE OF OPERATION: 03/24/2022 DATE OF PROCEDURE: 03/24/2022 PREOPERATIVE DIAGNOSIS: Acute appendicitis with phlegmon. POSTOPERATIVE DIAGNOSIS: Acute appendicitis with phlegmon. PROCEDURE: Laparoscopic appendectomy. SURGEON: Breonna Tang MD FINDINGS: Acute suppurative appendicitis with phlegmon involving the omentum, terminal ileum, cecum and appendix. DESCRIPTION OF PROCEDURE: Under general anesthesia, the patient's abdomen was prepped and draped in a sterile field. Timeout procedure was carried out as per protocol. Supraumbilical midline incision was made and Veress needle was inserted. The abdomen was insufflated with 2.5 liters of CO2. A 12 mm port was placed. Laparoscope was placed. Under videoscopic guidance, a 5 mm port was placed in the suprapubic midline and a 12 mm port in the left lower quadrant. The patient was placed in deep Trendelenburg position and rotated to the left. The ascending colon was identified and was followed down to the cecum. There was a very large phlegmon, which involved the omentum terminal ileum, cecum and appendix. Using blunt dissection, the acute inflammatory adhesions were dissected free, freeing up the terminal ileum as it coursed into the cecum. The appendix was found without difficulty. It was densely adherent to the retroperitoneum and was dissected using the EndoShears as well as blunt dissection. Once the appendix was dissected, it was transected using the Endo TEMO stapler. The mesoappendix was dissected and was then transected using the Endo TEMO stapler. Copious irrigation was carried out. The pelvis was also irrigated. A #10 Scott drain was placed and positioned in the bed of the inflamed area and brought out through the suprapubic midline port site. It was secured with 3-0 nylon. CO2 was allowed to escape from the abdomen and the ports were removed. The fascia at the umbilicus was closed with 0 Vicryl. Skin incisions were closed with roman. Tegaderm dressings were placed. The patient tolerated the procedure well. He was awakened, transferred to a bed, and taken to the postanesthetic care unit in satisfactory condition. LCS:lenora Job ID: [id number] Doc ID: [id number] Breonna Tang M.D.
== END 2022-03-25 17:56 | disposition home or self-care (01) | DRG 339 ==
LOC: ED 09:08 → MEDSUR 12:44
PROVIDERS: ADMIT Family Medicine Adult Medicine; ATTEND Family Medicine Adult Medicine